=== PATIENT | female | born 1965 | race African-American/Black ===

== ENCOUNTER → 2017-01-11 | Outpatient (CLI) | payer OTHER, MEDICARE ==
[2016-10-10 11:00] VITALS: BP 111/37
[~2017-01-11] MED LIST: AMOX1TAB58 PO; ATEN50TA PO; CYCL10TA2 PO; DOXY100T PO; FLUC100T7 PO; FLUT1DIS3 IH; HYDR-971 PO; HYDR200T5 PO; MELO15TA6 PO; NAPR500T3 PO; OMEP40CA5 PO; OXYC-250 PO; OXYC-323 PO; OXYC10TA32 PO; PHEN100C PO; PHEN300C4 PO; PROAIR HFA8.5 GM INH; TOPI100T39 PO; WARF5TAB PO
== END | disposition home or self-care (01) ==
LOC: LAB 15:15
PROVIDERS: ATTEND Orthopaedic Surgery Sports Medicine
DX: Z96.651 Presence of right artificial knee joint (principal)
CPT/HCPCS: 36415; 85651; 86141

== ENCOUNTER 2017-01-22 19:31 | Emergency (ER) | payer OTHER, MEDICARE ==
[~2017-01-22] VITALS: Ht 167.6 cm; Wt 106.6 kg
[2017-01-22] MEDS ORDERED: IPRATRPIUM/ALBUTEROL 0.5/2.5MG 3 ML NEBU. NEB ONE ×2 (19:45)
[2017-01-22 20:01] LABS: BASO % 0 % (0-3); EOS % 1 % (0-3); HEMATOCRIT 38.6 % (36.0-47.0); HEMOGLOBIN 13.2 g/dL (12.0-15.5); LYMPH # 3.1 x10^3/uL (1.0-4.8); LYMPH % 40 % (24-48); MEAN CORPUSCULAR HEMOGLOBIN 31 pg (25-35); MEAN CORPUSCULAR HGB CONC 34 g/dL (31-37); MEAN CORPUSCULAR VOLUME 90 fL (79-100); MONO % 6 % (0-9); NEUT % 53 % (31-73); PLATELET COUNT 210 x10^3/uL (140-400); RED BLOOD COUNT 4.28 x10^6/uL (3.50-5.40); RED CELL DISTRIBUTION WIDTH 13.3 % (11.5-14.5); WHITE BLOOD COUNT 7.9 x10^3/uL (4.0-11.0)
[2017-01-22 20:10] LABS: GFR 70.5; POTASSIUM 3.8 mmol/L (3.5-5.1)
[2017-01-22 20:15] LABS: ALBUMIN 3.6 g/dL (3.4-5.0); C-REACTIVE PROTEIN 13.9 mg/L (0-3.3); TOTAL BILIRUBIN 0.2 mg/dL (0.2-1.0); TOTAL PROTEIN 7.2 g/dL (6.4-8.2)
[2017-01-22] MEDS ORDERED: ONDANSETRON PF 4 MG/2 ML VIAL. IV ONE (20:15)
[2017-01-22] MEDS ORDERED: HYDROMORPHONE 2 MG/ML VIAL. IV ONE (20:15)
[2017-01-22 21:37] VITALS: BP 126/60
[2017-01-22] MEDS ORDERED: NAPR500T PO (21:59)
[2017-01-22] MEDS ORDERED: TRAM-29 PO (21:59)
--- NOTE | 2017-01-22 21:59 | RAD ---
PROCEDURE Left lower extremity deep venous Doppler ultrasound HISTORY Left leg pain and swelling. Edema. COMPARISON None FINDINGS Grayscale, color Doppler and duplex analysis issues. The left common femoral vein, greater saphenous vein, superficial femoral vein, deep femoral vein, popliteal vein and visualized calf veins appear patent. Normal response to augmentation and normal compressibility were applied. IMPRESSION Negative for left lower extremity deep venous thrombosis. Electronically signed by: Harrison Mar MD (Jan 22, 2017 21:58:00)
--- NOTE | 2017-01-22 22:00 | PHYS DOC ---
Past Medical History Past Medical History: DVT, Hypertension, Seizure Past Surgical History: Cholecystectomy, Hysterectomy, Knee Replacement, Tubal ligation Alcohol Use: Rarely Drug Use: None Adult General Chief Complaint Chief Complaint: LOWER EXTREMITY SWELLING HPI HPI Patient is a 51 year old female who presents here today secondary to pain and swelling in her left knee all the way down her foot. Patient's past medical history significant for hypertension. Patient reports that she had a left total knee replacement done in July [address] Balderas early and is been having pain to that area since. Patient reports that recently her orthopedic surgeon to get an x-ray of her knee which revealed a metallic foreign body in the knee area. She reports that Dr. Tobar has not made a recommendation for removal of that metallic object. Patient reports that she does have a history significant for a DVT in the past. She reports that after her first total knee replacement back in 2011 she developed a clot was on anticoagulant therapy but is currently not on any. Patient is not allergic to any medications. Patient has a history of hypertension. No history of diabetes CHF COPD or asthma. Patient does have a history of seizures. Patient has no other surgeries. Patient denies any fevers shakes chills nausea vomiting diarrhea cough chest pain shortness of breath dysuria frequency or urgency. Patient denies any recent trauma. 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 Patient's physical exam is significant for tenderness to palpation to her left knee. I do not appreciate an effusion. There is no erythema or warmth that I can appreciate. Patient does have swelling to her left lower starry in comparison to her right lower extremities. Patient pulses are intact. Her DP and PT pulses bilaterally are equal. Patient has good capillary refill distally. Patient's capillary refill to her left and right lower surveys are both equal bilaterally. Patient's ER course was significant for an ultrasound which revealed no DVT. The limitations of ultrasonography were discussed with the patient and she was advised to follow-up with her doctor within 1 week for repeat ultrasound if she has any further concerns to assist with ruling out a DVT. Patient also had an x- ray of her left knee which didn't show any acute pathology. The foreign body opacification that she had described to me is visible on the x-ray. A/P #1 left knee pain with lower extremity edema. Etiology unclear. There is no evidence of DVT. Patient will be discharged home with Naprosyn to assist her with her pain. Patient was instructed to follow-up with her orthopedic or surgeon for further evaluation and management of the foreign body that was noted on her x-ray. Patient will be discharged home with Naprosyn and Ultram to assist her with her pain. Review of Systems Review of Systems Constitutional: Denies fever or chills [] Eyes: Denies change in visual acuity, redness, or eye pain [] HENT: Denies nasal congestion or sore throat [] All other review systems are negative except as documented in the history of present illness. Current Medications Current Medications Current Medications Medications (Trade) Dose Ordered Sig/Penny Start Time Stop Time Status Last Admin Dose Admin Albuterol/ Ipratropium (Duoneb) 3 ml 1X ONCE 01/22/17 19:45 01/22/17 19:45 DC Hydromorphone HCl (Dilaudid) 0.5 mg 1X ONCE 01/22/17 20:15 01/22/17 20:16 DC 01/22/17 20:02 0.5 MG Ondansetron HCl (Zofran) 4 mg 1X ONCE 01/22/17 20:15 01/22/17 20:16 DC 01/22/17 20:01 4 MG Allergies Allergies Allergies Coded Allergies Type Severity Reaction Last Updated Verified No Known Medication Allergies Allergy Unknown 10/13/16 Yes vancomycin Adverse Reaction Intermediate rash, Doxycycline OK 10/13/16 Yes Physical Exam Physical Exam Constitutional: Well developed, well nourished, no acute distress, non-toxic appearance. [] HENT: Normocephalic Eyes: PERRLA, conjunctiva normal, Neck: Normal range of motion, no tenderness, Cardiovascular:Heart rate regular rhythm, Lungs & Thorax: Bilateral breath sounds clear to auscultation [] Abdomen: Bowel sounds normal, soft, no tenderness, no masses, Skin: Warm, dry, no erythema Back: No tenderness, no CVA tenderness. [] Extremities: see above Neurologic: Alert and oriented X 3, normal motor function, normal sensory function, no focal deficits noted. [] Psychologic: Affect normal, judgement normal, mood normal. [] Current Patient Data Vital Signs Vital Signs Date Time Temp Pulse Resp B/P Pulse Ox O2 Delivery O2 Flow Rate FiO2 01/22/17 21:37 74 16 126/60 95 Room Air 01/22/17 19:36 99 99.0 Lab Values Laboratory Tests Test 01/22/17 19:47 White Blood Count 7.9x10^3/uL (4.0-11.0) Red Blood Count 4.28x10^6/uL (3.50-5.40) Hemoglobin 13.2g/dL (12.0-15.5) Hematocrit 38.6% (36.0-47.0) Mean Corpuscular Volume 90fL (79-100) Mean Corpuscular Hemoglobin 31pg (25-35) Mean Corpuscular Hemoglobin Concent 34g/dL (31-37) Red Cell Distribution Width 13.3% (11.5-14.5) Platelet Count 210x10^3/uL (140-400) Neutrophils (%) (Auto) 53% (31-73) Lymphocytes (%) (Auto) 40% (24-48) Monocytes (%) (Auto) 6% (0-9) Eosinophils (%) (Auto) 1% (0-3) Basophils (%) (Auto) 0% (0-3) Neutrophils # (Auto) 4.2x10^3uL (1.8-7.7) Lymphocytes # (Auto) 3.1x10^3/uL (1.0-4.8) Monocytes # (Auto) 0.5x10^3/uL (0.0-1.1) Eosinophils # (Auto) 0.1x10^3/uL (0.0-0.7) Basophils # (Auto) 0.0x10^3/uL (0.0-0.2) Erythrocyte Sedimentation Rate 2 (0-25) Sodium Level 141mmol/L (136-145) Potassium Level 3.8mmol/L (3.5-5.1) Chloride Level 105mmol/L (98-107) Carbon Dioxide Level 25mmol/L (21-32) Anion Gap 11 (6-14) Blood Urea Nitrogen 16mg/dL (7-20) Creatinine 1.0mg/dL (0.6-1.0) Estimated GFR (Cockcroft-Gault) 70.5 BUN/Creatinine Ratio 16 (6-20) Glucose Level 181mg/dL (70-99) H Calcium Level 9.0mg/dL (8.5-10.1) Total Bilirubin 0.2mg/dL (0.2-1.0) Aspartate Amino Transferase (AST) 15U/L (15-37) Alanine Aminotransferase (ALT) 20U/L (14-59) Alkaline Phosphatase 187U/L (46-116) H C-Reactive Protein, Quantitative 13.9mg/L (0-3.3) H Total Protein 7.2g/dL (6.4-8.2) Albumin 3.6g/dL (3.4-5.0) Albumin/Globulin Ratio 1.0 (1.0-1.7) Laboratory Tests 01/22/17 19:47 Laboratory Tests 01/22/17 19:47 EKG EKG [] Radiology/Procedures Radiology/Procedures [] Course & Med Decision Making Course & Med Decision Making Pertinent Labs and Imaging studies reviewed. (See chart for details) [] Dragon Disclaimer Dragon Disclaimer This electronic medical record was generated, in whole or in part, using a voice recognition dictation system. Departure Departure Impression: Primary Impression: Painful total knee replacement Additional Impression: Left leg pain Disposition: 01 HOME, SELF-CARE Condition: IMPROVED Referrals: KEMI MARIANO MD (PCP) Patient Instructions: Knee Pain, Peripheral Edema Scripts Tramadol Hcl (Ultram)50 Mg Tablet1 Tab PO Q6HRS #14 TAB Prov:CASSIE JOHNSON MD 01/22/17 Naproxen (Naprosyn)500 Mg Tablet1 Tab PO BID #60 TAB Ref 1 Prov:CASSIE JOHNSON MD 01/22/17 Problem Qualifiers CASSIE JOHNSON MD Jan 22, 2017 22:00
--- NOTE | 2017-01-23 08:19 | RAD ---
KNEE LEFT 3V Clinical Indication: Left knee pain and swelling, total knee arthroplasty 6 months. Comparison: August 02, 2016. Technique: Frontal, oblique and lateral views of the left knee are obtained. Findings: Postsurgical changes of total knee arthroplasty are redemonstrated. No displaced fracture is seen. A somewhat linear type lucency is seen in an oblique fashion within the lateral proximal tibia, of undetermined significance, not appearing to represent a definite fracture. Follow-up exam could be obtained if pain persists. Radiopaque foreign body redemonstrated in the anterior soft tissues over the distal femur, stable in position. No significant joint effusion is present. Overlying soft tissues demonstrate no acute process. IMPRESSION: Postsurgical changes of total knee arthroplasty without a definite fracture seen. See discussion above.
== END 2017-01-22 22:08 | disposition home or self-care (01) ==
LOC: ER 19:31
DX: T84.84XA Pain due to internal orthopedic prosthetic devices, implants and grafts, initial encounter (principal); I10 Essential (primary) hypertension; Z86.718 Personal history of other venous thrombosis and embolism; Z96.652 Presence of left artificial knee joint; Z88.1 Allergy status to other antibiotic agents; Y79.2 Prosthetic and other implants, materials and accessory orthopedic devices associated with adverse incidents; Y92.89 Other specified places as the place of occurrence of the external cause
CPT/HCPCS: 36415; 73562; 80053; 85027; 85651; 86140; 86141; 93971; 96374; 96375; 99285; J1170; J2405

== ENCOUNTER → 2017-02-23 | Outpatient (CLI) | payer OTHER, MEDICARE ==
[~2017-02-23] MED LIST changes: +NAPR500T PO; +TRAM-29 PO; +WARF-78 PO; -WARF5TAB PO
== END | disposition home or self-care (01) ==
LOC: SPEC 12:11
PROVIDERS: ATTEND Internal Medicine
DX: R56.9 Unspecified convulsions (principal)
CPT/HCPCS: 36415; 80185

== ENCOUNTER → 2017-02-23 | Outpatient (CLI) | payer OTHER, MEDICARE | END | disposition home or self-care (01) | LOC: LAB 11:32 | PROVIDERS: ATTEND Orthopaedic Surgery Sports Medicine | DX: M25.561 Pain in right knee (principal) | CPT/HCPCS: 36415; 85651; 86141 ==

== ENCOUNTER → 2017-02-25 | Outpatient (CLI) | payer OTHER, MEDICARE | END | disposition home or self-care (01) | LOC: LAB 12:02 | PROVIDERS: ATTEND Orthopaedic Surgery Sports Medicine | DX: M25.562 Pain in left knee (principal) | CPT/HCPCS: 36415; 86140 ==

== ENCOUNTER → 2017-03-02 | Outpatient (CLI) | payer OTHER, MEDICARE ==
[2017-03-02 17:44] LABS: BF CLARITY TURBID; BF COLOR RED
== END | disposition home or self-care (01) ==
LOC: SPEC 16:20
PROVIDERS: ATTEND Orthopaedic Surgery Sports Medicine
DX: Z96.652 Presence of left artificial knee joint (principal)
CPT/HCPCS: 87205; 89050

== ENCOUNTER 2017-03-21 06:55 | Day surgery (SDC) | payer OTHER, MEDICARE ==
[~2017-03-21] VITALS: Ht 170.2 cm; Wt 107.5 kg
[~2017-03-21 06:55] MED LIST changes: +HYDR-2758 PO; -OXYC-250 PO; +OXYC-328 PO; -OXYC10TA32 PO; +OXYC10TA45 PO; -TOPI100T39 PO; +TOPI100T42 PO; -TRAM-29 PO; +TRAM-48 PO
[2017-03-21] MEDS ORDERED: PROCHLORPERAZINE 10 MG/2 ML VIAL. IV PRN (07:00)
[2017-03-21] MEDS ORDERED: HYDROmorphone 2 MG/ML VIAL IV PRN (07:00)
[2017-03-21] MEDS ORDERED: fentaNYL PF VIAL 100 MCG/2 ML VIAL IV PRN (07:00)
[2017-03-21] MEDS ORDERED: IV RINGERS,LACTATED 1000ML 1,000 ML IV SCH (07:00)
[2017-03-21] MEDS ORDERED: ONDANSETRON PF 4 MG/2 ML VIAL. IV PRN (07:00)
[2017-03-21] MEDS ORDERED: LIDOCAINE 1% 1 ML SYRINGE. ID PRN (07:00)
[2017-03-21] MEDS ORDERED: LIDOCAINE 1% PF 30 ML VIAL. ONE (07:19)
[2017-03-21] MEDS ORDERED: BUPIVACAINE MPF 0.5% 30 ML VIAL. ONE (07:20)
[2017-03-21] MEDS ORDERED: MORPHINE SULFATE 5 MG, KETOROLAC TROMETHAMINE 30 MG, ROPIVacaine 0.5% PF 60 ML, EPINEPH... INT ART ONE ×5 (07:22)
[2017-03-21] MEDS ORDERED: GABA-586 PO (07:29)
[2017-03-21] MEDS ORDERED: PROPOFOL 20 ML IV ONE (07:42)
[2017-03-21] MEDS ORDERED: LIDOCAINE 2% PF Vial for OR 5 ML VIAL. ONE (07:42)
[2017-03-21] MEDS ORDERED: fentaNYL PF VIAL 100 MCG/2 ML VIAL ONE (07:44)
[2017-03-21] MEDS ORDERED: MIDAZOLAM HCL/PF 2 MG/2 ML VIAL. ONE (07:44)
[2017-03-21] MEDS ORDERED: DEXAMETHASONE SOD PHOS 20 MG/5 ML VIAL. ONE (07:44)
[2017-03-21] MEDS ORDERED: ONDANSETRON PF 4 MG/2 ML VIAL. ONE (07:44)
--- NOTE | 2017-03-21 07:49 | DISCH ---
DISCHARGE INSTRUCTIONS Condition on Discharge Condition on Discharge: Stable Activity After Discharge Activity Instructions for Disc: Other, see below Bathing Instructions: Shower-keep dressing dry Weight Bearing Status after Di: As tolerated Diet after Discharge Diet after Discharge: Regular Wound Incision Care Wound/Incision Care: Ice to area for comfort, Keep wound/cast CDI, Keep wound elevated, Change dressing Contacting the DRRajni after DC Call your doctor for: Concerns you may have Follow-Up Follow up with: Bubba in 2wks MK COOLEY II, MD Mar 21, 2017 07:48
--- NOTE | 2017-03-21 07:50 | PDOC ---
BRIEF OPERATIVE NOTE Date: Mar 21, 2017 Pre-Op Diagnosis FB L knee Post-Op Diagnosis same Procedure Performed FB removal L knee Surgeon Bubba Armas Anesthesia Type: General, Local Blood Loss 25mL Complications none MK COOLEY II, MD Mar 21, 2017 07:50
[2017-03-21] MEDS ORDERED: DEXAMETHASONE SOD PHOS 4 MG/ML VIAL IV ONE (08:00)
[2017-03-21] MEDS ORDERED: SCOPOLAMINE 1.5MG PATCH. TD ONE (08:00)
[2017-03-21] MEDS ORDERED: FAMOTIDINE 20 MG/2 ML VIAL ONE (08:22)
[2017-03-21] MEDS ORDERED: METOCLOPRAMIDE HCL 10 MG/2 ML VIAL. ONE (08:36)
[2017-03-21] MEDS ORDERED: SEVOFLURANE 61 TO 120 MINUTES. IH ONE (08:42)
[2017-03-21] MEDS: fentaNYL PF VIAL 100 MCG/2 ML VIAL IV PRN ×3 (10:04→10:21)
[2017-03-21] MEDS: MORPHINE SULFATE 2 MG/ML DISP.SYRIN. IV PRN ×2 (10:07→10:17)
--- NOTE | 2017-03-21 10:29 | OP ---
DATE OF SURGERY: 03/21/2017 SURGEON: Ricky Cooley MD HEAD MVA REACTOR OPERATOR: Meghna Armas. ANESTHESIA: General. PREOPERATIVE DIAGNOSIS: Retained foreign body, left knee. POSTOPERATIVE DIAGNOSIS: Retained foreign body, left knee. PROCEDURE PERFORMED: Removal of foreign body from deep subcutaneous tissue, left knee. FINDINGS: A metallic piece measured approximately 6 mm x 2 mm x 1 mm thick, was found deep and subcutaneous tissue. ESTIMATED BLOOD LOSS: 25 mL. TOURNIQUET TIME: None used. REASON FOR PROCEDURE: The patient is a very pleasant 51-year-old female, who underwent a left knee revision surgery with myself, when likely part of an osteotome chipped off that was unrecognized until the postoperative x-ray. I discussed options with her and she elected for a wait and see approach; however, she had been having some pain that was likely over the area and I discussed the risks, benefits, alternatives to remove this foreign body, after she had recovered well from her knee replacement. DESCRIPTION OF PROCEDURE: The patient was greeted in the preoperative area by myself. Correct extremity was marked and verified. She was taken to the operative suite and her antibiotics were started en route. Once in the OR, she was transferred gently supine to the OR table and had successful induction of general anesthesia. She was secured to the bed. All pressure points were padded. We placed a nonsterile tourniquet and taped in place to her left thigh, but did not use it for this case. We placed a padded bolster at her hip as well in case we needed to maintain her knee into flexion. We then conducted or then proceeded to prep and drape left lower extremity in usual sterile fashion and conducted a standard preoperative timeout. Prior to this, an examination under anesthesia was performed by myself and revealed range of motion from 0 to approximately 95 degrees and the knee that was stable to varus and valgus in extension and mid flexion. After prepping and draping, which included an Ioban sandwich, I then brought in C-arm to help localize this area and then made an incision that included the proximal portion of her total knee arthroplasty incision and dissected subcutaneous tissue with an electrocautery down to the extensor mechanism. I used C-arm to help localize it further in place a spinal needle and used a combination of a tenotomy and small mosquito clamp to dissect to the region around the tip of the spinal needle and was able to identify the metallic object, which I then removed with the clamp. After this, we irrigated out the operative field with approximately 1500 mL of sterile normal saline. I then closed the deep layers with inverted interrupted #1 Vicryl in a multilayer fashion followed by inverted interrupted 2-0 for subcutaneous tissue and running 4-0 Monocryl for the skin in a subcuticular fashion. We then injected periarticular mixture liberally around the operative field, then incision. I then cleansed and dried the leg and placed Steri-Strips, Xeroform gauze, ABD, sterile cast padding and an Kj wrap to the patient's knee. She tolerated surgery well. Prior to completion of wound closure, all counts were reported correct x 2. No complications. Postop plan is to hopefully discharge her home, pending her postop nausea and vomiting that she has had some problems with in the past. She can weightbear as tolerated. Wound care was discussed with her and her family. We will see her back in my clinic in 2 weeks, sooner should problems arise. RICKY COOLEY MD DR: LUCHO/risa JOB#: [id number] / [id number] DANIEL
[2017-03-21] MEDS ORDERED: oxyCODONE/APAP 7.5/325 1 TAB TABLET PO PRN (10:30)
[2017-03-21 11:20] VITALS: BP 134/60
== END 2017-03-21 11:25 | disposition home or self-care (01) ==
LOC: SURG 06:55
PROVIDERS: ATTEND Orthopaedic Surgery Sports Medicine
DX: M79.5 Residual foreign body in soft tissue (principal); I10 Essential (primary) hypertension; J45.909 Unspecified asthma, uncomplicated; K21.9 Gastro-esophageal reflux disease without esophagitis; M19.90 Unspecified osteoarthritis, unspecified site; Z86.69 Personal history of other diseases of the nervous system and sense organs; Z90.710 Acquired absence of both cervix and uterus; Z98.51 Tubal ligation status; Z87.440 Personal history of urinary (tract) infections; Z96.653 Presence of artificial knee joint, bilateral; Z72.89 Other problems related to lifestyle; Z90.49 Acquired absence of other specified parts of digestive tract; Z87.01 Personal history of pneumonia (recurrent); Z88.3 Allergy status to other anti-infective agents
CPT/HCPCS: 10120; 12031; 76000; J0171; J0690; J0780; J1100; J1885; J2250; J2270; J2405; J2704; J2765; J2795; J3010; S0028; J3490

== ENCOUNTER 2017-03-23 13:49 | Emergency (ER) | payer OTHER, MEDICARE ==
[~2017-03-23] VITALS: Ht 167.6 cm; Wt 107.5 kg
[~2017-03-23 13:49] MED LIST changes: +GABA-586 PO
[2017-03-23 13:55] VITALS: BP 182/81
--- NOTE | 2017-03-23 14:29 | PHYS DOC ---
Past Medical History Past Medical History: DVT, Hypertension, Seizure Past Surgical History: Cholecystectomy, Hysterectomy, Knee Replacement, Tubal ligation Alcohol Use: Rarely Drug Use: None Adult General Chief Complaint Chief Complaint: OTHER COMPLAINTS [facility] HPI Patient is a 51 year old female presents to the emergency department with a history of left knee surgery on Tuesday. Patient states her dressing was saturated from secretions from the wound. Patient states that she originally came in to help the dressing removed. Patient states that she has been having increased pain and discomfort. She states that the secretions and drainage on the dressing which has a foul odor. Patient denies fever, chills, nausea or vomiting. Denies numbness or tingling in the foot. She states she last took a percocet 77.5 at 1130 today. Review of Systems Review of Systems Constitutional: Denies fever or chills [] Eyes: Denies change in visual acuity, redness, or eye pain [] HENT: Denies nasal congestion or sore throat [] Respiratory: Denies cough or shortness of breath [] Cardiovascular: No additional information not addressed in HPI [] GI: Denies abdominal pain, nausea, vomiting, bloody stools or diarrhea [] : Denies dysuria or hematuria [] Musculoskeletal: Denies back pain. C/o left knee pain and discomfort with odor coming from surgical dressing Integument: Denies rash or skin lesions [] Neurologic: Denies headache, focal weakness or sensory changes [] Endocrine: Denies polyuria or polydipsia [] Current Medications Current Medications Current Medications Medications (Trade) Dose Ordered Sig/Penny Start Time Stop Time Status Last Admin Dose Admin Ibuprofen (Motrin) 800 mg 1X ONCE 03/23/17 14:30 03/23/17 14:31 DC 03/23/17 14:51 800 MG Allergies Allergies Allergies Coded Allergies Type Severity Reaction Last Updated Verified vancomycin Adverse Reaction Intermediate rash, Doxycycline OK 03/21/17 Yes Physical Exam Physical Exam Constitutional: Well developed, well nourished, no acute distress, non-toxic appearance. [] HENT: Normocephalic, atraumatic, bilateral external ears normal, oropharynx moist, no oral exudates, nose normal. [] Eyes: PERRLA, EOMI, conjunctiva normal, no discharge. [] Neck: Normal range of motion, no tenderness, supple, no stridor. [] Cardiovascular:Heart rate regular rhythm Lungs & Thorax: no respiratory distress noted. Skin: Warm, dry, no erythema, no rash. Redness with foul odor drainage noted from the incision site. Back: No tenderness Extremities: Left knee tenderness noted at the incision site, no cyanosis, no clubbing, ROM intact, no edema. [] Neurologic: Alert and oriented X 3, normal motor function, normal sensory function, no focal deficits noted. [] Psychologic: Affect normal, judgement normal, mood normal. [] Current Patient Data Vital Signs Vital Signs Date Time Temp Pulse Resp B/P (MAP) Pulse Ox O2 Delivery O2 Flow Rate FiO2 03/23/17 13:55 98.2 66 16 96 Room Air 98.2 Lab Values Laboratory Tests Test 03/23/17 14:40 White Blood Count 8.0 x10^3/uL (4.0-11.0) Red Blood Count 4.29 x10^6/uL (3.50-5.40) Hemoglobin 13.4 g/dL (12.0-15.5) Hematocrit 38.8 % (36.0-47.0) Mean Corpuscular Volume 91 fL (79-100) Mean Corpuscular Hemoglobin 31 pg (25-35) Mean Corpuscular Hemoglobin Concent 35 g/dL (31-37) Red Cell Distribution Width 12.5 % (11.5-14.5) Platelet Count 164 x10^3/uL (140-400) Neutrophils (%) (Auto) 53 % (31-73) Lymphocytes (%) (Auto) 37 % (24-48) Monocytes (%) (Auto) 8 % (0-9) Eosinophils (%) (Auto) 1 % (0-3) Basophils (%) (Auto) 1 % (0-3) Neutrophils # (Auto) 4.3 x10^3uL (1.8-7.7) Lymphocytes # (Auto) 3.0 x10^3/uL (1.0-4.8) Monocytes # (Auto) 0.6 x10^3/uL (0.0-1.1) Eosinophils # (Auto) 0.1 x10^3/uL (0.0-0.7) Basophils # (Auto) 0.1 x10^3/uL (0.0-0.2) Laboratory Tests 03/23/17 14:40 EKG EKG [] Radiology/Procedures Radiology/Procedures [] Course & Med Decision Making Course & Med Decision Making Pertinent Labs and Imaging studies reviewed. (See chart for details) Spoke with Dr. Mac in regards to the patient in the emergency department with a dressing that was foul odor. White count is within normal limits. He recommends Bactrim and have the patient follow up with him in his doctor's office tomorrow at 9 AM. Patient will be discharged home with recommendations to use the ibuprofen 800 mg every 8 hours and continue to use the Percocet which she has prescription for. He recommended a clean dry dressing to the area. Patient will be discharged home in stable condition signs and symptoms to return back to emergency department as been provided. Patient agrees with discharge instructions treatment regimens and follow-up recommendations. [] Dragon Disclaimer Dragon Disclaimer This electronic medical record was generated, in whole or in part, using a voice recognition dictation system. Departure Departure Impression: Primary Impression: Wound, surgical, infected Disposition: HOME, SELF-CARE Condition: STABLE Referrals: KEMI MARIANO MD (PCP) Patient Instructions: Wound Infection, [id number] Additional Instructions: Keep the area clean and dry. Ibuprofen 800 mg every 8 hours with food stop taking few develop an upset stomach. Continue with your Percocet in which you have a prescription for home. Follow-up with Dr. Mac in his office tomorrow at 9 AM. Return back to emergency prior signs symptoms of become worse. Scripts Sulfamethoxazole/Trimethoprim (BACTRIM DS TABLET) 1 Each Tablet 1 TAB PO BID, #20 TAB Prov: ASHLEY MULLEN APRN 03/23/17 ASHLEY MULLEN APRN Mar 23, 2017 14:29
[2017-03-23] MEDS ORDERED: IBUPROFEN 800 MG TABLET. PO ONE (14:30)
[2017-03-23 14:54] LABS: BASO # 0.1 x10^3/uL (0.0-0.2); BASO % 1 % (0-3); EOS % 1 % (0-3); HEMATOCRIT 38.8 % (36.0-47.0); HEMOGLOBIN 13.4 g/dL (12.0-15.5); LYMPH % 37 % (24-48); MEAN CORPUSCULAR HEMOGLOBIN 31 pg (25-35); MEAN CORPUSCULAR HGB CONC 35 g/dL (31-37); MEAN CORPUSCULAR VOLUME 91 fL (79-100); MONO % 8 % (0-9); NEUT % 53 % (31-73); PLATELET COUNT 164 x10^3/uL (140-400); RED BLOOD COUNT 4.29 x10^6/uL (3.50-5.40); RED CELL DISTRIBUTION WIDTH 12.5 % (11.5-14.5)
[2017-03-23] MEDS ORDERED: SULF1TAB24 PO (15:13)
[2017-03-23 15:23] LABS: CALCIUM 8.9 mg/dL (8.5-10.1); CREATININE 0.8 mg/dL (0.6-1.0); GFR 91.1; POTASSIUM 3.7 mmol/L (3.5-5.1)
[2017-03-23 15:28] LABS: ALBUMIN 3.7 g/dL (3.4-5.0); TOTAL BILIRUBIN 0.4 mg/dL (0.2-1.0); TOTAL PROTEIN 7.4 g/dL (6.4-8.2)
== END 2017-03-23 15:33 | disposition home or self-care (01) ==
LOC: ER 13:49
DX: T81.4XXA Infection following a procedure, initial encounter (principal); I10 Essential (primary) hypertension; Z86.718 Personal history of other venous thrombosis and embolism; Z90.49 Acquired absence of other specified parts of digestive tract; Z90.710 Acquired absence of both cervix and uterus; Z96.652 Presence of left artificial knee joint; Z98.51 Tubal ligation status; Z88.1 Allergy status to other antibiotic agents; Y92.89 Other specified places as the place of occurrence of the external cause; Y83.8 Other surgical procedures as the cause of abnormal reaction of the patient, or of later complication, without mention of misadventure at the time of the procedure
CPT/HCPCS: 36415; 80053; 85027; 87040; 99284; 99285-25

== ENCOUNTER 2017-03-26 22:07 | Observation (INO) | payer OTHER, MEDICARE ==
[~2017-03-26] VITALS: Ht 167.6 cm; Wt 108.7 kg
[~2017-03-26 22:07] MED LIST changes: +SULF1TAB24 PO
[2017-03-26 22:49] LABS: BILIRUBIN,URINE NEGATIVE (NEG); GLUCOSE,URINE NEGATIVE (NEG); NITRITE,URINE NEGATIVE (NEG); PH,URINE 5.5; PROTEIN,URINE NEGATIVE (NEG-TRACE); UROBILINOGEN,URINE 0.2 mg/dL (0.2 mg/dL)
[2017-03-26 22:54] LABS: BACTERIA,URINE FEW /HPF (0-FEW); RBC,URINE 0 /HPF (0-2); SQUAMOUS EPITHELIAL CELL,UR MANY /LPF; WBC,URINE RARE /HPF (0-4)
[2017-03-26 23:29] LABS: BASO # 0.1 x10^3/uL (0.0-0.2); BASO % 1 % (0-3); EOS % 0 % (0-3); HEMATOCRIT 42.5 % (36.0-47.0); HEMOGLOBIN 14.5 g/dL (12.0-15.5); LYMPH # 1.5 x10^3/uL (1.0-4.8); LYMPH % 18 % (24-48); MEAN CORPUSCULAR HEMOGLOBIN 31 pg (25-35); MEAN CORPUSCULAR HGB CONC 34 g/dL (31-37); MEAN CORPUSCULAR VOLUME 90 fL (79-100); MONO % 5 % (0-9); NEUT % 77 % (31-73); PLATELET COUNT 241 x10^3/uL (140-400); RED BLOOD COUNT 4.71 x10^6/uL (3.50-5.40); RED CELL DISTRIBUTION WIDTH 12.7 % (11.5-14.5); WHITE BLOOD COUNT 8.7 x10^3/uL (4.0-11.0)
[2017-03-26] MEDS ORDERED: ONDANSETRON PF 4 MG/2 ML VIAL. IV ONE (23:30)
[2017-03-26] MEDS ORDERED: HYDROmorphone 2 MG/ML VIAL IV ONE (23:30)
[2017-03-26 23:39] LABS: CALCIUM 9.5 mg/dL (8.5-10.1); CREATININE 0.9 mg/dL (0.6-1.0); GFR 79.6; POTASSIUM 4.2 mmol/L (3.5-5.1)
[2017-03-26 23:44] LABS: ALBUMIN 3.7 g/dL (3.4-5.0); ALBUMIN/GLOBULIN RATIO 0.9 (1.0-1.7); TOTAL BILIRUBIN 0.2 mg/dL (0.2-1.0)
[2017-03-27] MEDS ORDERED: ACETAMINOPHEN 325 MG TABLET. PO PRN (00:30)
[2017-03-27] MEDS ORDERED: ONDANSETRON PF 4 MG/2 ML VIAL. IV PRN ×2 (00:30→13:34)
[2017-03-27] MEDS ORDERED: OXYC-327 PO (01:27)
[2017-03-27 01:38] VITALS: BP 126/63
[2017-03-27] MEDS: MORPHINE SULFATE 4 MG/ML DISP.SYRIN. IV PRN ×2 (02:01→05:53)
--- NOTE | 2017-03-27 02:17 | PHYS DOC ---
Past Medical History Past Medical History: DVT, Hypertension, Seizure Past Surgical History: Cholecystectomy, Hysterectomy, Knee Replacement, Tubal ligation Additional Past Surgical Histo: MULTIPLE KNEE SX Alcohol Use: Rarely Drug Use: None Adult General Chief Complaint Chief Complaint: POST-OP PROBLEM HPI HPI Patient is a 51 year old female who presents here today secondary to pain and swelling to her left knee. Patient recently had surgery for a retained foreign body in her knee. She reports that she had a surgery to remove some metallic object that was left inside there. Patient reports that she went to her PCP on Tuesday secondary to pain and swelling in drainage. Patient reports that she was discharged home after an evaluation the ER and discussion with Dr. Balderas early on Tuesday on Bactrim. Today she had a fever 101.3 at home so she came in to the ER for further evaluation. Patient reports she's had vomiting 2. No diarrhea. No dysuria frequency or urgency. No sore throat or ear pain. No rash. Patient's physical exam was significant for tenderness to palpation and erythema around the incision site of her left knee. The remainder the patient's exams been normal. Patient's TMs are clear. Oropharynx was normal. Her abdomen was soft nontender no rebound or guarding. Patient has no other rash or joint tenderness. Patient has no nuchal rigidity Patient's ER workup was significant for an elevated CRP. Patient's CBC count was normal. Patient did have a low-grade fever here in the ED. Assessment and plan 51-year-old female with recent surgery to her left knee. Patient is concerned that she might have a postop wound infection. Patient does have a temperature 101 at home despite being on Bactrim now. I discussed the case with Dr. quintana and he is her best that we admit her to the hospital in the hospital service for further evaluation. Blood cultures have been sent. And are pending. Review of Systems Review of Systems Please Eyes: Denies change in visual acuity, redness, or eye pain [] All other review systems are negative except as documented in the history of present illness portion. Current Medications Current Medications Current Medications Medications (Trade) Dose Ordered Sig/Penny Start Time Stop Time Status Last Admin Dose Admin Acetaminophen (Tylenol) 650 mg PRN Q4HRS PRN 03/27/17 00:30 03/28/17 00:29 03/27/17 02:02 650 MG Hydromorphone HCl (Dilaudid) 1 mg 1X ONCE 03/26/17 23:30 03/26/17 23:31 DC 03/26/17 23:26 1 MG Morphine Sulfate 4 mg PRN Q2HR PRN 03/27/17 00:30 03/28/17 00:29 03/27/17 02:01 4 MG Ondansetron HCl (Zofran) 4 mg PRN Q8HRS PRN 03/27/17 00:30 03/28/17 00:29 Allergies Allergies Allergies Coded Allergies Type Severity Reaction Last Updated Verified vancomycin Adverse Reaction Intermediate rash, Doxycycline OK 03/21/17 Yes Physical Exam Physical Exam Please see above Constitutional: Well developed, well nourished, no acute distress, non-toxic appearance. [] HENT: Normocephalic, atraumatic, bilateral external ears normal, oropharynx moist, no oral exudates, nose normal. [] Eyes: PERRLA, EOMI, conjunctiva normal, no discharge. [] Neck: Normal range of motion, no tenderness, supple, no stridor. [] Cardiovascular:Heart rate regular rhythm, no murmur [] Lungs & Thorax: Bilateral breath sounds clear to auscultation [] Abdomen: Bowel sounds normal, soft, no tenderness, no masses, no pulsatile masses. [] Neurologic: Alert and oriented X 3, normal motor function, normal sensory function, no focal deficits noted. [] Psychologic: Affect normal, judgement normal, mood normal. [] Current Patient Data Vital Signs Vital Signs Date Time Temp Pulse Resp B/P (MAP) Pulse Ox O2 Delivery O2 Flow Rate FiO2 03/26/17 22:25 100.1 88 20 147/69 (95) 99 Room Air 100.1 Lab Values Laboratory Tests Test 03/26/17 22:30 03/26/17 23:20 03/26/17 23:30 Urine Collection Type Unknown Urine Color Yellow Urine Clarity Clear Urine pH 5.5 Urine Specific [place] 1.015 Urine Protein Negative mg/dL (NEG-TRACE) Urine Glucose (UA) Negative mg/dL (NEG) Urine Ketones (Stick) Negative mg/dL (NEG) Urine Blood Negative (NEG) Urine Nitrite Negative (NEG) Urine Bilirubin Negative (NEG) Urine Urobilinogen Dipstick 0.2 mg/dL (0.2 mg/dL) Urine Leukocyte Esterase Negative (NEG) Urine RBC 0 /HPF (0-2) Urine WBC Rare /HPF (0-4) Urine Squamous Epithelial Cells Many /LPF Urine Bacteria Few /HPF (0-FEW) Urine Mucus Marked /LPF White Blood Count 8.7 x10^3/uL (4.0-11.0) Red Blood Count 4.71 x10^6/uL (3.50-5.40) Hemoglobin 14.5 g/dL (12.0-15.5) Hematocrit 42.5 % (36.0-47.0) Mean Corpuscular Volume 90 fL (79-100) Mean Corpuscular Hemoglobin 31 pg (25-35) Mean Corpuscular Hemoglobin Concent 34 g/dL (31-37) Red Cell Distribution Width 12.7 % (11.5-14.5) Platelet Count 241 x10^3/uL (140-400) Neutrophils (%) (Auto) 77 % (31-73) H Lymphocytes (%) (Auto) 18 % (24-48) L Monocytes (%) (Auto) 5 % (0-9) Eosinophils (%) (Auto) 0 % (0-3) Basophils (%) (Auto) 1 % (0-3) Neutrophils # (Auto) 6.6 x10^3uL (1.8-7.7) Lymphocytes # (Auto) 1.5 x10^3/uL (1.0-4.8) Monocytes # (Auto) 0.4 x10^3/uL (0.0-1.1) Eosinophils # (Auto) 0.0 x10^3/uL (0.0-0.7) Basophils # (Auto) 0.1 x10^3/uL (0.0-0.2) Erythrocyte Sedimentation Rate 2 (0-25) Sodium Level 138 mmol/L (136-145) Potassium Level 4.2 mmol/L (3.5-5.1) Chloride Level 104 mmol/L (98-107) Carbon Dioxide Level 26 mmol/L (21-32) Anion Gap 8 (6-14) Blood Urea Nitrogen 9 mg/dL (7-20) Creatinine 0.9 mg/dL (0.6-1.0) Estimated GFR (Cockcroft-Gault) 79.6 BUN/Creatinine Ratio 10 (6-20) Glucose Level 163 mg/dL (70-99) H Calcium Level 9.5 mg/dL (8.5-10.1) Total Bilirubin 0.2 mg/dL (0.2-1.0) Aspartate Amino Transferase (AST) 19 U/L (15-37) Alanine Aminotransferase (ALT) 21 U/L (14-59) Alkaline Phosphatase 178 U/L (46-116) H Total Protein 8.0 g/dL (6.4-8.2) Albumin 3.7 g/dL (3.4-5.0) Albumin/Globulin Ratio 0.9 (1.0-1.7) L Lactic Acid Level 1.9 mmol/L (0.4-2.0) C-Reactive Protein, Quantitative 20.9 mg/L (0-3.3) H Laboratory Tests 03/26/17 23:20 Laboratory Tests 03/26/17 23:20 EKG EKG [] Radiology/Procedures Radiology/Procedures [] Course & Med Decision Making Course & Med Decision Making Pertinent Labs and Imaging studies reviewed. (See chart for details) [] Dragon Disclaimer Dragon Disclaimer This electronic medical record was generated, in whole or in part, using a voice recognition dictation system. Departure Departure Impression: Primary Impression: Postoperative fever Additional Impression: Wound, surgical, infected Disposition: ADMITTED INPATIENT Admitting Physician: Kemi Mariano Condition: IMPROVED Referrals: KEMI MARIANO MD (PCP) Problem Qualifiers CASSIE JOHNSON MD Mar 27, 2017 02:17
[2017-03-27] MEDS ORDERED: HYDROcodone/APAP 5/325MG 1 TAB TABLET PO PRN (02:45)
[2017-03-27] MEDS ORDERED: CYCLOBENZAPRINE 10 MG TABLET. PO PRN (02:45)
[2017-03-27] MEDS ORDERED: NON FORMULARY ITEM (Albuterol Sulfate (Proair Hfa Inhaler) 1 PUFF) INH PRN (02:45)
[2017-03-27] MEDS ORDERED: oxyCODONE/APAP 7.5/325 1 TAB TABLET PO PRN (03:00)
[2017-03-27] MEDS ORDERED: ALBUTEROL SULFATE 2.5 MG/3 ML NEBU. NEB PRN (03:00)
[2017-03-27] MEDS ORDERED: SUMAtriptan SUCCINATE 25 MG TABLET PO PRN ×2 (03:15→11:30)
[2017-03-27] MEDS: oxyCODONE/APAP 7.5/325 1 TAB TABLET PO PRN ×3 (03:15→20:36)
[2017-03-27 05:54] LABS: BASO # 0.1 x10^3/uL (0.0-0.2); BASO % 1 % (0-3); EOS % 0 % (0-3); HEMOGLOBIN 13.9 g/dL (12.0-15.5); LYMPH # 3.9 x10^3/uL (1.0-4.8); LYMPH % 35 % (24-48); MEAN CORPUSCULAR HEMOGLOBIN 31 pg (25-35); MEAN CORPUSCULAR HGB CONC 36 g/dL (31-37); MEAN CORPUSCULAR VOLUME 88 fL (79-100); MONO % 9 % (0-9); NEUT % 55 % (31-73); PLATELET COUNT 250 x10^3/uL (140-400); RED BLOOD COUNT 4.43 x10^6/uL (3.50-5.40); RED CELL DISTRIBUTION WIDTH 12.8 % (11.5-14.5); WHITE BLOOD COUNT 11.1 x10^3/uL (4.0-11.0)
[2017-03-27 06:12] LABS: ALBUMIN 3.5 g/dL (3.4-5.0); ALBUMIN/GLOBULIN RATIO 0.9 (1.0-1.7); CREATININE 0.8 mg/dL (0.6-1.0); GFR 91.1; POTASSIUM 3.7 mmol/L (3.5-5.1); TOTAL BILIRUBIN 0.3 mg/dL (0.2-1.0); TOTAL PROTEIN 7.4 g/dL (6.4-8.2)
--- NOTE | 2017-03-27 07:31 | PDOC ---
ORTHO PROGRESS NOTES Vitals Vital Signs Date Time Temp Pulse Resp B/P (MAP) Pulse Ox O2 Delivery O2 Flow Rate FiO2 03/27/17 06:24 17 Room Air 03/27/17 01:38 99.4 82 126/63 (84) 93 99.4 Labs Laboratory Tests Test 03/26/17 22:30 03/26/17 23:20 03/26/17 23:30 03/27/17 05:41 Urine Collection Type Unknown Urine Color Yellow Urine Clarity Clear Urine pH 5.5 Urine Specific [place] 1.015 Urine Protein Negative mg/dL (NEG-TRACE) Urine Glucose (UA) Negative mg/dL (NEG) Urine Ketones (Stick) Negative mg/dL (NEG) Urine Blood Negative (NEG) Urine Nitrite Negative (NEG) Urine Bilirubin Negative (NEG) Urine Urobilinogen Dipstick 0.2 mg/dL (0.2 mg/dL) Urine Leukocyte Esterase Negative (NEG) Urine RBC 0 /HPF (0-2) Urine WBC Rare /HPF (0-4) Urine Squamous Epithelial Cells Many /LPF Urine Bacteria Few /HPF (0-FEW) Urine Mucus Marked /LPF White Blood Count 8.7 x10^3/uL (4.0-11.0) 11.1 x10^3/uL (4.0-11.0) Red Blood Count 4.71 x10^6/uL (3.50-5.40) 4.43 x10^6/uL (3.50-5.40) Hemoglobin 14.5 g/dL (12.0-15.5) 13.9 g/dL (12.0-15.5) Hematocrit 42.5 % (36.0-47.0) 39.0 % (36.0-47.0) Mean Corpuscular Volume 90 fL (79-100) 88 fL (79-100) Mean Corpuscular Hemoglobin 31 pg (25-35) 31 pg (25-35) Mean Corpuscular Hemoglobin Concent 34 g/dL (31-37) 36 g/dL (31-37) Red Cell Distribution Width 12.7 % (11.5-14.5) 12.8 % (11.5-14.5) Platelet Count 241 x10^3/uL (140-400) 250 x10^3/uL (140-400) Neutrophils (%) (Auto) 77 % (31-73) 55 % (31-73) Lymphocytes (%) (Auto) 18 % (24-48) 35 % (24-48) Monocytes (%) (Auto) 5 % (0-9) 9 % (0-9) Eosinophils (%) (Auto) 0 % (0-3) 0 % (0-3) Basophils (%) (Auto) 1 % (0-3) 1 % (0-3) Neutrophils # (Auto) 6.6 x10^3uL (1.8-7.7) 6.1 x10^3uL (1.8-7.7) Lymphocytes # (Auto) 1.5 x10^3/uL (1.0-4.8) 3.9 x10^3/uL (1.0-4.8) Monocytes # (Auto) 0.4 x10^3/uL (0.0-1.1) 1.0 x10^3/uL (0.0-1.1) Eosinophils # (Auto) 0.0 x10^3/uL (0.0-0.7) 0.0 x10^3/uL (0.0-0.7) Basophils # (Auto) 0.1 x10^3/uL (0.0-0.2) 0.1 x10^3/uL (0.0-0.2) Erythrocyte Sedimentation Rate 2 (0-25) Sodium Level 138 mmol/L (136-145) 139 mmol/L (136-145) Potassium Level 4.2 mmol/L (3.5-5.1) 3.7 mmol/L (3.5-5.1) Chloride Level 104 mmol/L (98-107) 104 mmol/L (98-107) Carbon Dioxide Level 26 mmol/L (21-32) 26 mmol/L (21-32) Anion Gap 8 (6-14) 9 (6-14) Blood Urea Nitrogen 9 mg/dL (7-20) 9 mg/dL (7-20) Creatinine 0.9 mg/dL (0.6-1.0) 0.8 mg/dL (0.6-1.0) Estimated GFR (Cockcroft-Gault) 79.6 91.1 BUN/Creatinine Ratio 10 (6-20) 11 (6-20) Glucose Level 163 mg/dL (70-99) 130 mg/dL (70-99) Calcium Level 9.5 mg/dL (8.5-10.1) 9.0 mg/dL (8.5-10.1) Total Bilirubin 0.2 mg/dL (0.2-1.0) 0.3 mg/dL (0.2-1.0) Aspartate Amino Transf (AST/SGOT) 19 U/L (15-37) 15 U/L (15-37) Alanine Aminotransferase (ALT/SGPT) 21 U/L (14-59) 21 U/L (14-59) Alkaline Phosphatase 178 U/L (46-116) 162 U/L (46-116) Total Protein 8.0 g/dL (6.4-8.2) 7.4 g/dL (6.4-8.2) Albumin 3.7 g/dL (3.4-5.0) 3.5 g/dL (3.4-5.0) Albumin/Globulin Ratio 0.9 (1.0-1.7) 0.9 (1.0-1.7) Lactic Acid Level 1.9 mmol/L (0.4-2.0) C-Reactive Protein, Quantitative 20.9 mg/L (0-3.3) Laboratory Tests Test 03/26/17 22:30 03/26/17 23:20 03/26/17 23:30 03/27/17 05:41 Urine Collection Type Unknown Urine Color Yellow Urine Clarity Clear Urine pH 5.5 Urine Specific [place] 1.015 Urine Protein Negative mg/dL (NEG-TRACE) Urine Glucose (UA) Negative mg/dL (NEG) Urine Ketones (Stick) Negative mg/dL (NEG) Urine Blood Negative (NEG) Urine Nitrite Negative (NEG) Urine Bilirubin Negative (NEG) Urine Urobilinogen Dipstick 0.2 mg/dL (0.2 mg/dL) Urine Leukocyte Esterase Negative (NEG) Urine RBC 0 /HPF (0-2) Urine WBC Rare /HPF (0-4) Urine Squamous Epithelial Cells Many /LPF Urine Bacteria Few /HPF (0-FEW) Urine Mucus Marked /LPF White Blood Count 8.7 x10^3/uL (4.0-11.0) 11.1 x10^3/uL (4.0-11.0) Red Blood Count 4.71 x10^6/uL (3.50-5.40) 4.43 x10^6/uL (3.50-5.40) Hemoglobin 14.5 g/dL (12.0-15.5) 13.9 g/dL (12.0-15.5) Hematocrit 42.5 % (36.0-47.0) 39.0 % (36.0-47.0) Mean Corpuscular Volume 90 fL (79-100) 88 fL (79-100) Mean Corpuscular Hemoglobin 31 pg (25-35) 31 pg (25-35) Mean Corpuscular Hemoglobin Concent 34 g/dL (31-37) 36 g/dL (31-37) Red Cell Distribution Width 12.7 % (11.5-14.5) 12.8 % (11.5-14.5) Platelet Count 241 x10^3/uL (140-400) 250 x10^3/uL (140-400) Neutrophils (%) (Auto) 77 % (31-73) 55 % (31-73) Lymphocytes (%) (Auto) 18 % (24-48) 35 % (24-48) Monocytes (%) (Auto) 5 % (0-9) 9 % (0-9) Eosinophils (%) (Auto) 0 % (0-3) 0 % (0-3) Basophils (%) (Auto) 1 % (0-3) 1 % (0-3) Neutrophils # (Auto) 6.6 x10^3uL (1.8-7.7) 6.1 x10^3uL (1.8-7.7) Lymphocytes # (Auto) 1.5 x10^3/uL (1.0-4.8) 3.9 x10^3/uL (1.0-4.8) Monocytes # (Auto) 0.4 x10^3/uL (0.0-1.1) 1.0 x10^3/uL (0.0-1.1) Eosinophils # (Auto) 0.0 x10^3/uL (0.0-0.7) 0.0 x10^3/uL (0.0-0.7) Basophils # (Auto) 0.1 x10^3/uL (0.0-0.2) 0.1 x10^3/uL (0.0-0.2) Erythrocyte Sedimentation Rate 2 (0-25) Sodium Level 138 mmol/L (136-145) 139 mmol/L (136-145) Potassium Level 4.2 mmol/L (3.5-5.1) 3.7 mmol/L (3.5-5.1) Chloride Level 104 mmol/L (98-107) 104 mmol/L (98-107) Carbon Dioxide Level 26 mmol/L (21-32) 26 mmol/L (21-32) Anion Gap 8 (6-14) 9 (6-14) Blood Urea Nitrogen 9 mg/dL (7-20) 9 mg/dL (7-20) Creatinine 0.9 mg/dL (0.6-1.0) 0.8 mg/dL (0.6-1.0) Estimated GFR (Cockcroft-Gault) 79.6 91.1 BUN/Creatinine Ratio 10 (6-20) 11 (6-20) Glucose Level 163 mg/dL (70-99) 130 mg/dL (70-99) Calcium Level 9.5 mg/dL (8.5-10.1) 9.0 mg/dL (8.5-10.1) Total Bilirubin 0.2 mg/dL (0.2-1.0) 0.3 mg/dL (0.2-1.0) Aspartate Amino Transf (AST/SGOT) 19 U/L (15-37) 15 U/L (15-37) Alanine Aminotransferase (ALT/SGPT) 21 U/L (14-59) 21 U/L (14-59) Alkaline Phosphatase 178 U/L (46-116) 162 U/L (46-116) Total Protein 8.0 g/dL (6.4-8.2) 7.4 g/dL (6.4-8.2) Albumin 3.7 g/dL (3.4-5.0) 3.5 g/dL (3.4-5.0) Albumin/Globulin Ratio 0.9 (1.0-1.7) 0.9 (1.0-1.7) Lactic Acid Level 1.9 mmol/L (0.4-2.0) C-Reactive Protein, Quantitative 20.9 mg/L (0-3.3) Assessment and Plan please see full note possible hematoma, smaller chance of abscess will check U/S MK COOLEY II, MD Mar 27, 2017 07:31
[2017-03-27 07:50] VITALS: BP 116/65
[2017-03-27] MEDS: HYDROXYCHLOROQUINE 200 MG TABLET PO SCH ×2 (08:31→20:35)
[2017-03-27] MEDS: PANTOPRAZOLE 40 MG TABLET.DR. PO SCH (08:32)
[2017-03-27] MEDS: GABAPENTIN 100 MG CAPSULE. PO SCH ×2 (08:33→20:35)
[2017-03-27] MEDS: NAPROXEN 500 MG TABLET PO SCH ×2 (08:33→20:34)
[2017-03-27] MEDS: ATENOLOL 25 MG TABLET. PO SCH (08:33)
[2017-03-27] MEDS ORDERED: SMZ/TMP 800/160MG TABLET. PO SCH (09:00)
--- NOTE | 2017-03-27 10:15 | RAD ---
EXAM: Soft tissue ultrasound left knee. HISTORY: Incisional fluid collection left knee. COMPARISON: None. FINDINGS: Sonographic evaluation was performed about the left knee incision. There is edema within the surrounding subcutaneous fat. No fluid collection is seen. IMPRESSION: 1. No fluid collection is identified.
[2017-03-27 11:00] VITALS: BP 115/78
[2017-03-27] MEDS ORDERED: HYDROmorphone 2 MG/ML VIAL IV PRN (11:30)
--- NOTE | 2017-03-27 11:41 | PDOC ---
Provider Note Provider Note Pt seen.H&P dictated. [id number] KEMI MARIANO MD Mar 27, 2017 11:41
--- NOTE | 2017-03-27 13:19 | HP ---
ADMIT DATE: 03/27/2017 LOCATION: [facility]. REASON FOR ADMISSION TO THE HOSPITAL: Fever, nausea, vomiting, headache, recent knee surgery, and removal of hardware; piece of the hardware, not complete removal of the hardware. HISTORY OF PRESENT ILLNESS: The patient is a 51-year-old female patient known to me. She has a history of knee replacement. This was done a couple of years ago, and there was a small piece of metal hanging loose, which was removed on 03/22/2017. She went home. She was having some low-grade fever with chills and headaches, got progressively worse, came to the Emergency Room and was seen by Orthopedics, had a sonogram, no free fluid around the knee and was put on Rocephin. The patient was having some migraine headaches, history of seizures on Dilantin, otherwise she was relatively stable. The patient was started on antibiotics. ID was consulted. Orthopedics was seen. PAST MEDICAL HISTORY: History of left knee arthroplasty, subsequent revision, and last week had a small loose metal removed, history of DVT, seizures, and rheumatoid arthritis. PAST SURGICAL HISTORY: Had a hysterectomy and gallbladder surgery, and surgery in the knee. 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 MEDICATIONS AT HOME: The patient is on albuterol, atenolol 50 mg daily, cyclobenzaprine 10 mg 3 times daily, gabapentin 300 mg three times daily, hydrocodone q. 6 hours., hydroxyzine 200 mg twice a day, naproxen 500 mg twice a day, omeprazole 40 mg daily, oxycodone 7.5 daily, Dilantin 400 mg at bedtime, Bactrim was recently started, and Topamax 100 mg daily. PERSONAL HISTORY: No history of smoking, alcohol, or drug abuse. FAMILY HISTORY: Positive for diabetes. REVIEW OF SYSTEMS: CARDIAC: No chest pain. LUNGS: No cough, sputum. She complains of headaches, mostly in the frontal, low-grade fever with chills. Rest of the 14 systems was reviewed and negative. PHYSICAL EXAMINATION: GENERAL: The patient had a maximum fever of 100.1 here, pulse 88, respirations 20, and blood pressure 147/69, and 99% on room air. HEENT: Head is atraumatic. Pupils are equal. Some congestion in the nose. NECK: Supple. Thyroid not enlarged. JVD not elevated. CHEST: Symmetrical. CARDIOVASCULAR: S1, S2. LUNGS: Clear. ABDOMEN: Soft, no mass palpable. Incision on the left knee looks fine. No redness. EXTREMITIES: No calf tenderness. NEUROLOGIC: Cranial nerves intact. Power 5/5 in all extremities. LABORATORY DATA: Shows white count was 8, went up to 11, hemoglobin 14, and platelets 241. Sedimentation rate was 2. Electrolytes were unremarkable. Glucose of 143. Lactic acid 1.9, C-reactive protein was 21, slightly high. UA was negative. FINAL IMPRESSION: 1. Low grade fever.viral? vs knee infection. 2. Headaches, possibility of sinusitis. 3. Recent surgery on the knee, recent removal of loose metal piece from the knee. 4. History of previous knee replacement surgery x2. 5. History of seizures. 6. History of migraines. PLAN: At this time, admit to hospital, seen by Orthopedics. Had a sonogram negative for any abscess or free fluid around the knee area. ID was consulted and started on Rocephin. We will get a CT of the sinuses. Further recommendation to follow. Check Dilantin levels. KEMI MARIANO MD DR: ARNULFO/risa JOB#: [id number] / [id number] DANIEL
[2017-03-27] MEDS ORDERED: PROMETHAZINE 12.5 MG in IV NORMAL SALINE 50ML 50 ML IV PRN ×2 (13:45→14:00)
--- NOTE | 2017-03-27 14:28 | PDOC ---
Infectious Disease Note Vital Sign Vital Signs Vital Signs Date Time Temp Pulse Resp B/P (MAP) Pulse Ox O2 Delivery O2 Flow Rate FiO2 03/27/17 12:22 93 Room Air 03/27/17 11:00 98.6 81 18 115/78 (90) 98.6 Labs Lab Laboratory Tests Test 03/26/17 22:30 03/26/17 23:20 03/26/17 23:30 03/27/17 05:41 Urine Collection Type Unknown Urine Color Yellow Urine Clarity Clear Urine pH 5.5 Urine Specific [place] 1.015 Urine Protein Negative mg/dL (NEG-TRACE) Urine Glucose (UA) Negative mg/dL (NEG) Urine Ketones (Stick) Negative mg/dL (NEG) Urine Blood Negative (NEG) Urine Nitrite Negative (NEG) Urine Bilirubin Negative (NEG) Urine Urobilinogen Dipstick 0.2 mg/dL (0.2 mg/dL) Urine Leukocyte Esterase Negative (NEG) Urine RBC 0 /HPF (0-2) Urine WBC Rare /HPF (0-4) Urine Squamous Epithelial Cells Many /LPF Urine Bacteria Few /HPF (0-FEW) Urine Mucus Marked /LPF White Blood Count 8.7 x10^3/uL (4.0-11.0) 11.1 x10^3/uL (4.0-11.0) Red Blood Count 4.71 x10^6/uL (3.50-5.40) 4.43 x10^6/uL (3.50-5.40) Hemoglobin 14.5 g/dL (12.0-15.5) 13.9 g/dL (12.0-15.5) Hematocrit 42.5 % (36.0-47.0) 39.0 % (36.0-47.0) Mean Corpuscular Volume 90 fL (79-100) 88 fL (79-100) Mean Corpuscular Hemoglobin 31 pg (25-35) 31 pg (25-35) Mean Corpuscular Hemoglobin Concent 34 g/dL (31-37) 36 g/dL (31-37) Red Cell Distribution Width 12.7 % (11.5-14.5) 12.8 % (11.5-14.5) Platelet Count 241 x10^3/uL (140-400) 250 x10^3/uL (140-400) Neutrophils (%) (Auto) 77 % (31-73) 55 % (31-73) Lymphocytes (%) (Auto) 18 % (24-48) 35 % (24-48) Monocytes (%) (Auto) 5 % (0-9) 9 % (0-9) Eosinophils (%) (Auto) 0 % (0-3) 0 % (0-3) Basophils (%) (Auto) 1 % (0-3) 1 % (0-3) Neutrophils # (Auto) 6.6 x10^3uL (1.8-7.7) 6.1 x10^3uL (1.8-7.7) Lymphocytes # (Auto) 1.5 x10^3/uL (1.0-4.8) 3.9 x10^3/uL (1.0-4.8) Monocytes # (Auto) 0.4 x10^3/uL (0.0-1.1) 1.0 x10^3/uL (0.0-1.1) Eosinophils # (Auto) 0.0 x10^3/uL (0.0-0.7) 0.0 x10^3/uL (0.0-0.7) Basophils # (Auto) 0.1 x10^3/uL (0.0-0.2) 0.1 x10^3/uL (0.0-0.2) Erythrocyte Sedimentation Rate 2 (0-25) Sodium Level 138 mmol/L (136-145) 139 mmol/L (136-145) Potassium Level 4.2 mmol/L (3.5-5.1) 3.7 mmol/L (3.5-5.1) Chloride Level 104 mmol/L (98-107) 104 mmol/L (98-107) Carbon Dioxide Level 26 mmol/L (21-32) 26 mmol/L (21-32) Anion Gap 8 (6-14) 9 (6-14) Blood Urea Nitrogen 9 mg/dL (7-20) 9 mg/dL (7-20) Creatinine 0.9 mg/dL (0.6-1.0) 0.8 mg/dL (0.6-1.0) Estimated GFR (Cockcroft-Gault) 79.6 91.1 BUN/Creatinine Ratio 10 (6-20) 11 (6-20) Glucose Level 163 mg/dL (70-99) 130 mg/dL (70-99) Calcium Level 9.5 mg/dL (8.5-10.1) 9.0 mg/dL (8.5-10.1) Total Bilirubin 0.2 mg/dL (0.2-1.0) 0.3 mg/dL (0.2-1.0) Aspartate Amino Transf (AST/SGOT) 19 U/L (15-37) 15 U/L (15-37) Alanine Aminotransferase (ALT/SGPT) 21 U/L (14-59) 21 U/L (14-59) Alkaline Phosphatase 178 U/L (46-116) 162 U/L (46-116) Total Protein 8.0 g/dL (6.4-8.2) 7.4 g/dL (6.4-8.2) Albumin 3.7 g/dL (3.4-5.0) 3.5 g/dL (3.4-5.0) Albumin/Globulin Ratio 0.9 (1.0-1.7) 0.9 (1.0-1.7) Lactic Acid Level 1.9 mmol/L (0.4-2.0) C-Reactive Protein, Quantitative 20.9 mg/L (0-3.3) Objective Assessment Post-op fever s/p removal metallic foreign body left knee, 03/21 N/V 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 Plan Plan of Care D/c Bactrim and observe. no clear evidence of knee infection f/u BC f/u am labs Antiemetic Thank you [id number] Attending Co-Sign The patient was seen and interviewed as well as examined at the bedside. The chart was reviewed. The case was discussed. Agree with the plan of care. VAIBHAV BAILEY APRN Mar 27, 2017 14:28 DOC KEITA MD Mar 27, 2017 14:29
[2017-03-27 15:00] VITALS: BP 112/60
--- NOTE | 2017-03-27 16:00 | PDOC ---
ORTHO PROGRESS NOTES Subjective Emesis, nausea, feels sick. "knee feels fine" Vitals Vital Signs Date Time Temp Pulse Resp B/P (MAP) Pulse Ox O2 Delivery O2 Flow Rate FiO2 03/27/17 15:00 97.5 59 18 112/60 (77) 90 Room Air 97.5 Labs Laboratory Tests Test 03/26/17 22:30 03/26/17 23:20 03/26/17 23:30 03/27/17 05:41 Urine Collection Type Unknown Urine Color Yellow Urine Clarity Clear Urine pH 5.5 Urine Specific [place] 1.015 Urine Protein Negative mg/dL (NEG-TRACE) Urine Glucose (UA) Negative mg/dL (NEG) Urine Ketones (Stick) Negative mg/dL (NEG) Urine Blood Negative (NEG) Urine Nitrite Negative (NEG) Urine Bilirubin Negative (NEG) Urine Urobilinogen Dipstick 0.2 mg/dL (0.2 mg/dL) Urine Leukocyte Esterase Negative (NEG) Urine RBC 0 /HPF (0-2) Urine WBC Rare /HPF (0-4) Urine Squamous Epithelial Cells Many /LPF Urine Bacteria Few /HPF (0-FEW) Urine Mucus Marked /LPF White Blood Count 8.7 x10^3/uL (4.0-11.0) 11.1 x10^3/uL (4.0-11.0) Red Blood Count 4.71 x10^6/uL (3.50-5.40) 4.43 x10^6/uL (3.50-5.40) Hemoglobin 14.5 g/dL (12.0-15.5) 13.9 g/dL (12.0-15.5) Hematocrit 42.5 % (36.0-47.0) 39.0 % (36.0-47.0) Mean Corpuscular Volume 90 fL (79-100) 88 fL (79-100) Mean Corpuscular Hemoglobin 31 pg (25-35) 31 pg (25-35) Mean Corpuscular Hemoglobin Concent 34 g/dL (31-37) 36 g/dL (31-37) Red Cell Distribution Width 12.7 % (11.5-14.5) 12.8 % (11.5-14.5) Platelet Count 241 x10^3/uL (140-400) 250 x10^3/uL (140-400) Neutrophils (%) (Auto) 77 % (31-73) 55 % (31-73) Lymphocytes (%) (Auto) 18 % (24-48) 35 % (24-48) Monocytes (%) (Auto) 5 % (0-9) 9 % (0-9) Eosinophils (%) (Auto) 0 % (0-3) 0 % (0-3) Basophils (%) (Auto) 1 % (0-3) 1 % (0-3) Neutrophils # (Auto) 6.6 x10^3uL (1.8-7.7) 6.1 x10^3uL (1.8-7.7) Lymphocytes # (Auto) 1.5 x10^3/uL (1.0-4.8) 3.9 x10^3/uL (1.0-4.8) Monocytes # (Auto) 0.4 x10^3/uL (0.0-1.1) 1.0 x10^3/uL (0.0-1.1) Eosinophils # (Auto) 0.0 x10^3/uL (0.0-0.7) 0.0 x10^3/uL (0.0-0.7) Basophils # (Auto) 0.1 x10^3/uL (0.0-0.2) 0.1 x10^3/uL (0.0-0.2) Erythrocyte Sedimentation Rate 2 (0-25) Sodium Level 138 mmol/L (136-145) 139 mmol/L (136-145) Potassium Level 4.2 mmol/L (3.5-5.1) 3.7 mmol/L (3.5-5.1) Chloride Level 104 mmol/L (98-107) 104 mmol/L (98-107) Carbon Dioxide Level 26 mmol/L (21-32) 26 mmol/L (21-32) Anion Gap 8 (6-14) 9 (6-14) Blood Urea Nitrogen 9 mg/dL (7-20) 9 mg/dL (7-20) Creatinine 0.9 mg/dL (0.6-1.0) 0.8 mg/dL (0.6-1.0) Estimated GFR (Cockcroft-Gault) 79.6 91.1 BUN/Creatinine Ratio 10 (6-20) 11 (6-20) Glucose Level 163 mg/dL (70-99) 130 mg/dL (70-99) Calcium Level 9.5 mg/dL (8.5-10.1) 9.0 mg/dL (8.5-10.1) Total Bilirubin 0.2 mg/dL (0.2-1.0) 0.3 mg/dL (0.2-1.0) Aspartate Amino Transf (AST/SGOT) 19 U/L (15-37) 15 U/L (15-37) Alanine Aminotransferase (ALT/SGPT) 21 U/L (14-59) 21 U/L (14-59) Alkaline Phosphatase 178 U/L (46-116) 162 U/L (46-116) Total Protein 8.0 g/dL (6.4-8.2) 7.4 g/dL (6.4-8.2) Albumin 3.7 g/dL (3.4-5.0) 3.5 g/dL (3.4-5.0) Albumin/Globulin Ratio 0.9 (1.0-1.7) 0.9 (1.0-1.7) Lactic Acid Level 1.9 mmol/L (0.4-2.0) C-Reactive Protein, Quantitative 20.9 mg/L (0-3.3) Laboratory Tests Test 03/26/17 22:30 03/26/17 23:20 03/26/17 23:30 03/27/17 05:41 Urine Collection Type Unknown Urine Color Yellow Urine Clarity Clear Urine pH 5.5 Urine Specific [place] 1.015 Urine Protein Negative mg/dL (NEG-TRACE) Urine Glucose (UA) Negative mg/dL (NEG) Urine Ketones (Stick) Negative mg/dL (NEG) Urine Blood Negative (NEG) Urine Nitrite Negative (NEG) Urine Bilirubin Negative (NEG) Urine Urobilinogen Dipstick 0.2 mg/dL (0.2 mg/dL) Urine Leukocyte Esterase Negative (NEG) Urine RBC 0 /HPF (0-2) Urine WBC Rare /HPF (0-4) Urine Squamous Epithelial Cells Many /LPF Urine Bacteria Few /HPF (0-FEW) Urine Mucus Marked /LPF White Blood Count 8.7 x10^3/uL (4.0-11.0) 11.1 x10^3/uL (4.0-11.0) Red Blood Count 4.71 x10^6/uL (3.50-5.40) 4.43 x10^6/uL (3.50-5.40) Hemoglobin 14.5 g/dL (12.0-15.5) 13.9 g/dL (12.0-15.5) Hematocrit 42.5 % (36.0-47.0) 39.0 % (36.0-47.0) Mean Corpuscular Volume 90 fL (79-100) 88 fL (79-100) Mean Corpuscular Hemoglobin 31 pg (25-35) 31 pg (25-35) Mean Corpuscular Hemoglobin Concent 34 g/dL (31-37) 36 g/dL (31-37) Red Cell Distribution Width 12.7 % (11.5-14.5) 12.8 % (11.5-14.5) Platelet Count 241 x10^3/uL (140-400) 250 x10^3/uL (140-400) Neutrophils (%) (Auto) 77 % (31-73) 55 % (31-73) Lymphocytes (%) (Auto) 18 % (24-48) 35 % (24-48) Monocytes (%) (Auto) 5 % (0-9) 9 % (0-9) Eosinophils (%) (Auto) 0 % (0-3) 0 % (0-3) Basophils (%) (Auto) 1 % (0-3) 1 % (0-3) Neutrophils # (Auto) 6.6 x10^3uL (1.8-7.7) 6.1 x10^3uL (1.8-7.7) Lymphocytes # (Auto) 1.5 x10^3/uL (1.0-4.8) 3.9 x10^3/uL (1.0-4.8) Monocytes # (Auto) 0.4 x10^3/uL (0.0-1.1) 1.0 x10^3/uL (0.0-1.1) Eosinophils # (Auto) 0.0 x10^3/uL (0.0-0.7) 0.0 x10^3/uL (0.0-0.7) Basophils # (Auto) 0.1 x10^3/uL (0.0-0.2) 0.1 x10^3/uL (0.0-0.2) Erythrocyte Sedimentation Rate 2 (0-25) Sodium Level 138 mmol/L (136-145) 139 mmol/L (136-145) Potassium Level 4.2 mmol/L (3.5-5.1) 3.7 mmol/L (3.5-5.1) Chloride Level 104 mmol/L (98-107) 104 mmol/L (98-107) Carbon Dioxide Level 26 mmol/L (21-32) 26 mmol/L (21-32) Anion Gap 8 (6-14) 9 (6-14) Blood Urea Nitrogen 9 mg/dL (7-20) 9 mg/dL (7-20) Creatinine 0.9 mg/dL (0.6-1.0) 0.8 mg/dL (0.6-1.0) Estimated GFR (Cockcroft-Gault) 79.6 91.1 BUN/Creatinine Ratio 10 (6-20) 11 (6-20) Glucose Level 163 mg/dL (70-99) 130 mg/dL (70-99) Calcium Level 9.5 mg/dL (8.5-10.1) 9.0 mg/dL (8.5-10.1) Total Bilirubin 0.2 mg/dL (0.2-1.0) 0.3 mg/dL (0.2-1.0) Aspartate Amino Transf (AST/SGOT) 19 U/L (15-37) 15 U/L (15-37) Alanine Aminotransferase (ALT/SGPT) 21 U/L (14-59) 21 U/L (14-59) Alkaline Phosphatase 178 U/L (46-116) 162 U/L (46-116) Total Protein 8.0 g/dL (6.4-8.2) 7.4 g/dL (6.4-8.2) Albumin 3.7 g/dL (3.4-5.0) 3.5 g/dL (3.4-5.0) Albumin/Globulin Ratio 0.9 (1.0-1.7) 0.9 (1.0-1.7) Lactic Acid Level 1.9 mmol/L (0.4-2.0) C-Reactive Protein, Quantitative 20.9 mg/L (0-3.3) X-Rays U/S reviewed, no sign of fluid collection Notes Resting, easily awakens LLE: incision unchanged remains NVI Assessment and Plan Her wound looks ok tome, minimal drainage no hematoma/seroma/abscess no plan on surgical intervention MK COOLEY II, MD Mar 27, 2017 16:00
[2017-03-27 19:00] VITALS: BP 131/62
--- NOTE | 2017-03-27 19:17 | CONS ---
DATE OF CONSULTATION: 03/27/2017 REFERRING PROVIDER: Dr. Kait Pyle. CONSULTING PROVIDER: Ricky Mac MD REASON FOR CONSULTATION: Fever and drainage from the wound. CHIEF COMPLAINT: Left knee pain and headache. HISTORY OF PRESENT ILLNESS: The patient is a 51-year-old female who works here and is well known to me. She recently underwent a foreign body removal from her left knee. She had undergone a left knee revision for malrotation with myself quite some time ago. She has had pain after her knee revision, and we have worked her up for infection which has been negative. She reports that recently she noted that there had been some drainage at her wound, and she has had some fevers and headaches. She tells me her temperature at home was as high as 101.5. She has also been complaining of nausea and vomiting lately. Because of progression of these symptoms, she presented to the Emergency Department and was admitted. I had seen her recently this week and have started her on Bactrim after looking at her wound as a precaution. REVIEW OF SYSTEMS: A 12-point review of systems was negative except as per HPI. ALLERGIES: VANCOMYCIN. PAST MEDICAL HISTORY: History of DVT, hypertension, and seizure disorder. PAST SURGICAL HISTORY: Cholecystectomy, hysterectomy, bilateral knee replacements, left knee revision, and tubal ligation. SOCIAL HISTORY: She lives with family, uses alcohol occasionally, and no tobacco. FAMILY HISTORY: Noncontributory. MEDICATIONS: Reviewed. Please see MRAD. PHYSICAL EXAMINATION: VITAL SIGNS: Reviewed. T-max of 100.1 at our facility. GENERAL: The patient is alert and oriented. In no acute distress, slightly ill-appearing. HEENT: Head normocephalic, atraumatic. Extraocular muscles are intact. CARDIOVASCULAR: Regular rate and rhythm. Dorsalis pedis is palpable. LUNGS: Respirations are unlabored. Symmetric chest rise. ABDOMEN: Soft and nondistended. EXTREMITIES: Her left lower extremity reveals improved erythema around her knee. It was faint several days ago, but it does look better now. She does have some firmness in the korin-incisional area, and there is some bloody drainage present. There is a very small amount of drainage. No effusion at her knee. Normal motor and sensation distally in her left lower extremity. LABORATORY DATA: Reviewed. White count is 11.1 up from 8.7 yesterday. UA was reviewed. IMPRESSION: Possible hematoma versus infection after removal for foreign body from left knee. PLAN: We will be maintain her on antibiotics today. We will get an ultrasound of her korin-incisional area and thigh to see if there is a fluid collection. She may need an irrigation and debridement, and we will plan on doing this tomorrow pending the results of the ultrasound. She can be mobilized and weightbear as tolerated. RICKY MAC MD DR: LUCHO/risa JOB#: [id number] / [id number] DANIEL
[2017-03-27] MEDS ORDERED: PHENYTOIN SODIUM EXTENDED 100 MG CAPSULE PO SCH (21:00)
[2017-03-27] MEDS ORDERED: TOPIRAMATE 100 MG TABLET. PO SCH (21:00)
[2017-03-27] MEDS: MAGNESIUM HYDROXIDE 2,400 MG/30 ML ORAL.SUSP. PO PRN (22:02)
[2017-03-27 23:02] VITALS: BP 132/68
--- NOTE | 2017-03-27 23:31 | CONS ---
DATE OF CONSULTATION: 03/27/2017 This is Rasheed Hernandez, nurse practitioner, dictating for Dr. Golden Keita, Infectious Disease. REFERRING PHYSICIAN: Dr. Ball. REASON FOR CONSULTATION: Postop wound infection. HISTORY OF PRESENT ILLNESS: The patient is a 51-year-old female with a left total knee arthroplasty in 2011 followed by a revision in 07/2016. Postop x-ray revealed a small radiopaque foreign body. The patient elected to wait and see approach. However, she experienced gradual increase of pain and difficulty walking. On 03/21/2017, she was taken to the OR and had removal of a metallic foreign body from the subcutaneous tissue. About 2 days later, she arrived in the ER with worsening pain, swelling and bloody drainage from incision. She was prescribed Bactrim, however, symptoms persisted. She developed fever 102 and chills. On admission, she had normal white blood cell count with a sed rate of 2. Blood cultures were obtained. An ultrasound of the left knee showed edema within the surrounding subcutaneous fat with no fluid collection seen. She was given a one-time dose of Rocephin in the ER. ID has been asked to consult for further evaluation and treatment for possible infection. The patient is complaining of nausea and vomiting. She reports less knee pain and increased range of motion. She continues to take the Bactrim. PAST MEDICAL HISTORY: Rheumatoid arthritis, history of DVT, on warfarin therapy, seizure disorder, diabetes, gastroesophageal reflux disease, hypertension, asthma, sleep apnea on CPAP off and on, dumping syndrome, uterine fibroids status post hysterectomy with bilateral salpingo-oophorectomy. PAST SURGICAL HISTORY: Left total knee arthroplasty in 2011 followed by a revision in 07/2016. Hysterectomy, ____, depression. SOCIAL HISTORY: Nonsmoker. Occasional alcohol use. FAMILY HISTORY: Positive for diabetes. ALLERGIES: Listed VANCOMYCIN CAUSING RED MAN SYNDROME. MEDICATIONS: One time dose of Rocephin in the ER, Bactrim and Plaquenil. Other medications are available and have been reviewed on the DEC. REVIEW OF SYSTEMS: Denies headache, nasal/sinus congestion or sore throat. Denies cough, shortness of air or wheezing. Denies chest pain or palpitations. Denies constipation or diarrhea. Denies rash. Denies muscle aches or joint pains. PHYSICAL EXAMINATION: GENERAL: A tired-appearing female, propped up in bed, in no apparent distress. VITAL SIGNS: Temperature is 98.6, T-max 100.1, blood pressure 115/78, heart rate 81, respiratory rate 18, pulse oximetry 93% on room air. Weight is 239 pounds. BMI of 38. HEENT: Pupils equally round. Normal conjunctivae. Oral mucosa is pink and moist. NECK: Supple. LUNGS: Clear to auscultation. HEART: Normal S1 and S2. ABDOMEN: Obese, bowel sounds are present, soft, nontender. EXTREMITIES: No gross edema or cyanosis. Left knee incision well approximated, minimal bruising. No redness, drainage or warmth. Full flexion and extension. SKIN: Without rash. NEUROLOGIC: Alert and oriented x 3. LABORATORY DATA: WBC 11.1 from 8.7 on admission, hemoglobin 13.9, platelet count 250,000. Sed rate 2. Electrolytes are unremarkable. Creatinine 0.8, BUN 9, glucose 130. Total bilirubin 0.3, AST 15, ALT 21. CRP 20.9, albumin 3.5. Urinalysis unremarkable for infection. Blood cultures pending. Ultrasound per HPI. IMPRESSION: 1. Postop fever. 2. Status post removal of metallic foreign body of the left knee, 03/21/2017. 3. Nausea and vomiting. 4. Intolerance to vancomycin causing red man syndrome. 5. Rheumatoid arthritis. 6. Seizure disorder. PLAN: Discontinue the Bactrim and observe. The left knee shows no signs of infection. We will follow up on morning laboratory values and cultures. Antiemetics to control nausea and vomiting. Supportive care. Thank you, Dr. Ball for asking us to participate in this patient's care. Should you have further questions or concerns, please call. The patient is seen and examined and plan of care implemented by Dr. Golden Keita. GOLDEN KEITA MD DR: VERONICA/risa JOB#: [id number] / [id number]
[2017-03-28] MEDS: oxyCODONE/APAP 7.5/325 1 TAB TABLET PO PRN (00:49)
[2017-03-28 05:07] LABS: BASO % 0 % (0-3); EOS % 1 % (0-3); HEMATOCRIT 39.3 % (36.0-47.0); HEMOGLOBIN 13.4 g/dL (12.0-15.5); LYMPH # 2.4 x10^3/uL (1.0-4.8); LYMPH % 27 % (24-48); MEAN CORPUSCULAR HEMOGLOBIN 31 pg (25-35); MEAN CORPUSCULAR HGB CONC 34 g/dL (31-37); MEAN CORPUSCULAR VOLUME 90 fL (79-100); MONO % 9 % (0-9); NEUT % 64 % (31-73); PLATELET COUNT 214 x10^3/uL (140-400); RED BLOOD COUNT 4.38 x10^6/uL (3.50-5.40); RED CELL DISTRIBUTION WIDTH 12.4 % (11.5-14.5); WHITE BLOOD COUNT 8.9 x10^3/uL (4.0-11.0)
[2017-03-28 07:00] VITALS: BP 106/54
--- NOTE | 2017-03-28 08:59 | RAD ---
Examination: CT head and maxillofacial bones History: History of sinusitis. Comparison: CT maxillofacial bones from 07/28/2015 Procedure: Axial images are obtained of the head from the skull base through the vertex without IV contrast. Axial CT images of the maxillofacial bones performed without contrast. Coronal and sagittal reformats of the maxillofacial bones were performed Findings: The ventricles and sulci are normal for the patient's age. No mass-effect, intracranial mass, midline shift, hemorrhage or obvious acute infarction is identified. Basilar cisterns are patent. Bone windows demonstrate no significant calvarial abnormality. The visualized orbital globes appear intact. The retro-orbital fat is maintained The bilateral frontal sinuses, ethmoidal sinuses, sphenoid sinuses, maxillary sinuses are unopacified. The mastoid air cells are clear The nasal septum is in the midline.. Impression: 1. No acute intracranial process. 2. Unremarkable maxillofacial CT. PQRS Compliance Statement: One or more of the following individualized dose reduction techniques were utilized for this examination: 1. Automated exposure control 2. Adjustment of the mA and/or kV according to patient size 3. Use of iterative reconstruction technique faint
[2017-03-28] MEDS: HYDROXYCHLOROQUINE 200 MG TABLET PO SCH (09:34)
[2017-03-28] MEDS: MAGNESIUM HYDROXIDE 2,400 MG/30 ML ORAL.SUSP. PO PRN (09:34)
[2017-03-28] MEDS: ATENOLOL 25 MG TABLET. PO SCH (09:35)
[2017-03-28] MEDS: NAPROXEN 500 MG TABLET PO SCH (09:35)
[2017-03-28] MEDS: PANTOPRAZOLE 40 MG TABLET.DR. PO SCH (09:35)
[2017-03-28] MEDS: GABAPENTIN 100 MG CAPSULE. PO SCH (09:36)
--- NOTE | 2017-03-28 09:52 | PDOC ---
PROGRESS NOTES Subjective Subjective feels better ,ready to go home Objective Objective Vital Signs Date Time Temp Pulse Resp B/P (MAP) Pulse Ox O2 Delivery O2 Flow Rate FiO2 03/28/17 09:35 76 106/54 03/28/17 07:00 99.6 20 98 Room Air 99.6 Intake and Output 03/28/17 07:00 Intake Total 701.0 ml Balance 701.0 ml Intake Oral 600 ml IV Total 101.0 ml # Voids 5 Physical Exam Abdomen: Normal bowel sounds, Soft Heart: Regular rate, Normal S1 Extremities: No clubbing General: Alert HEENT: Atraumatic Lungs: Clear to auscultation MUSCULOSKELETAL: No deformity, Other Neck: Supple Neuro: Normal speech Psych/Mental Status: Mental status NL Skin: No breakdown Diagnosis Problem List Problems Medical Problems: (1) Wound, surgical, infected Status: Acute Assessment Assessment Problems Medical Problems: (1) Wound, surgical, infected Status: Acute FINAL IMPRESSION: 1. Low grade fever. 2. Headaches, ?possibility of sinusitis. 3. Recent surgery on the knee, recent removal of loose metal piece from the knee. 4. History of previous knee replacement surgery x2. 5. History of seizures. 6. History of migraines. PLAN: no more fevers wbc normal ct sinus -ve. spoke with ID. d/c home. no need for antibiotics.No bacterial infection At this time, admit to hospital, seen by Orthopedics. Had a sonogram negative for any abscess or free fluid around the knee area. ID was consulted and started on Rocephin. We will get a CT of the sinuses. Further recommendation to follow. Check Dilantin levels. Problems: Plan Plan of Care Problems Medical Problems: (1) Wound, surgical, infected Status: Acute Comment Review of Relevant I have reviewed the following items patti (where applicable) has been applied. Labs Laboratory Tests Test 03/28/17 04:40 White Blood Count 8.9 x10^3/uL (4.0-11.0) Red Blood Count 4.38 x10^6/uL (3.50-5.40) Hemoglobin 13.4 g/dL (12.0-15.5) Hematocrit 39.3 % (36.0-47.0) Mean Corpuscular Volume 90 fL (79-100) Mean Corpuscular Hemoglobin 31 pg (25-35) Mean Corpuscular Hemoglobin Concent 34 g/dL (31-37) Red Cell Distribution Width 12.4 % (11.5-14.5) Platelet Count 214 x10^3/uL (140-400) Neutrophils (%) (Auto) 64 % (31-73) Lymphocytes (%) (Auto) 27 % (24-48) Monocytes (%) (Auto) 9 % (0-9) Eosinophils (%) (Auto) 1 % (0-3) Basophils (%) (Auto) 0 % (0-3) Neutrophils # (Auto) 5.7 x10^3uL (1.8-7.7) Lymphocytes # (Auto) 2.4 x10^3/uL (1.0-4.8) Monocytes # (Auto) 0.8 x10^3/uL (0.0-1.1) Eosinophils # (Auto) 0.1 x10^3/uL (0.0-0.7) Basophils # (Auto) 0.0 x10^3/uL (0.0-0.2) Microbiology 03/27/17 Blood Culture - Preliminary, Resulted NO GROWTH AFTER 1 DAY Medications Current Medications Hydromorphone HCl (Dilaudid) 2 mg PRN Q4HRS PRN IV PAIN Last administered on 11:52; Start 03/27/17 at 11:30 Magnesium Hydroxide (Milk Of Magnesia) 2,400 mg PRN DAILY PRN PO CONSTIPATION Last administered on 03/28/17 09:34; Start 03/27/17 at 21:30 Ondansetron HCl (Zofran) 8 mg PRN Q6HRS PRN IV NAUSEA/VOMITING Last administered on 03/27/17 14:19; Start 03/27/17 at 13:34; Stop 03/28/17 at 13:33 Phenytoin Sodium (Dilantin) 400 mg HS PO Last administered on 03/27/17 20:35; Start 03/27/17 at 21:00 Promethazine HCl 12.5 mg/Sodium Chloride 50.5 ml @ 101 mls/hr PRN Q6HRS PRN IV NAUSEA Last administered on 03/27/17 21:28; Start 03/27/17 at 14:00 Promethazine HCl 12.5 mg/Sodium Chloride 50.5 ml @ 101 mls/hr Q6HRS PRN IV NAUSEA Last administered on 03/27/17 14:31; Start 03/27/17 at 13:45; Stop 03/27 at 13:52; Status DC Sumatriptan Succinate (Imitrex) 100 mg PRN Q4HRS PRN PO MIGRAINE HEADACHE; Start 03/27/17 at 11:30 Topiramate (Topamax) 100 mg HS PO Last administered on 03/27/17 20:35; Start 03/27/17 at 21:00 Vitals/I & O Vital Sign - Last 24 Hours 03/27/17 03/27/17 03/27/17 03/27/17 11:00 11:52 12:22 15:00 Temp 98.6 97.5 98.6 97.5 Pulse 81 59 Resp 18 18 B/P (MAP) 115/78 (90) 112/60 (77) Pulse Ox 97 93 93 90 O2 Delivery Room Air Room Air Room Air Room Air 03/27/17 03/27/17 03/27/17 03/27/17 19:00 20:30 20:36 23:02 Temp 97.5 97.7 97.5 97.7 Pulse 70 72 Resp 20 18 20 B/P (MAP) 131/62 (85) 132/68 (89) Pulse Ox 99 96 O2 Delivery Room Air Room Air Room Air Room Air 03/28/17 03/28/17 03/28/17 03/28/17 00:49 01:49 05:53 06:53 Resp 20 20 20 Pulse Ox 96 O2 Delivery Room Air Room Air Room Air Room Air 03/28/17 03/28/17 07:00 09:35 Temp 99.6 99.6 Pulse 76 76 Resp 20 B/P (MAP) 106/54 (71) 106/54 Pulse Ox 98 O2 Delivery Room Air Intake and Output 03/27/17 03/27/17 03/28/17 15:00 23:00 07:00 Intake Total 461.0 ml 240 ml Balance 461.0 ml 240 ml KEMI MARIANO MD Mar 28, 2017 09:52
--- NOTE | 2017-03-28 10:01 | PDOC ---
Provider Note Provider Note Discharge summary dictated. #[id number] KEMI MARIANO MD Mar 28, 2017 10:01
--- NOTE | 2017-03-28 10:36 | PDOC ---
ORTHO PROGRESS NOTES Subjective feels better, no knee pain Vitals Vital Signs Date Time Temp Pulse Resp B/P (MAP) Pulse Ox O2 Delivery O2 Flow Rate FiO2 03/28/17 09:35 76 106/54 03/28/17 07:00 99.6 20 98 Room Air 99.6 Labs Laboratory Tests Test 03/26/17 22:30 03/26/17 23:20 03/26/17 23:30 03/27/17 05:41 Urine Collection Type Unknown Urine Color Yellow Urine Clarity Clear Urine pH 5.5 Urine Specific [place] 1.015 Urine Protein Negative mg/dL (NEG-TRACE) Urine Glucose (UA) Negative mg/dL (NEG) Urine Ketones (Stick) Negative mg/dL (NEG) Urine Blood Negative (NEG) Urine Nitrite Negative (NEG) Urine Bilirubin Negative (NEG) Urine Urobilinogen Dipstick 0.2 mg/dL (0.2 mg/dL) Urine Leukocyte Esterase Negative (NEG) Urine RBC 0 /HPF (0-2) Urine WBC Rare /HPF (0-4) Urine Squamous Epithelial Cells Many /LPF Urine Bacteria Few /HPF (0-FEW) Urine Mucus Marked /LPF White Blood Count 8.7 x10^3/uL (4.0-11.0) 11.1 x10^3/uL (4.0-11.0) Red Blood Count 4.71 x10^6/uL (3.50-5.40) 4.43 x10^6/uL (3.50-5.40) Hemoglobin 14.5 g/dL (12.0-15.5) 13.9 g/dL (12.0-15.5) Hematocrit 42.5 % (36.0-47.0) 39.0 % (36.0-47.0) Mean Corpuscular Volume 90 fL (79-100) 88 fL (79-100) Mean Corpuscular Hemoglobin 31 pg (25-35) 31 pg (25-35) Mean Corpuscular Hemoglobin Concent 34 g/dL (31-37) 36 g/dL (31-37) Red Cell Distribution Width 12.7 % (11.5-14.5) 12.8 % (11.5-14.5) Platelet Count 241 x10^3/uL (140-400) 250 x10^3/uL (140-400) Neutrophils (%) (Auto) 77 % (31-73) 55 % (31-73) Lymphocytes (%) (Auto) 18 % (24-48) 35 % (24-48) Monocytes (%) (Auto) 5 % (0-9) 9 % (0-9) Eosinophils (%) (Auto) 0 % (0-3) 0 % (0-3) Basophils (%) (Auto) 1 % (0-3) 1 % (0-3) Neutrophils # (Auto) 6.6 x10^3uL (1.8-7.7) 6.1 x10^3uL (1.8-7.7) Lymphocytes # (Auto) 1.5 x10^3/uL (1.0-4.8) 3.9 x10^3/uL (1.0-4.8) Monocytes # (Auto) 0.4 x10^3/uL (0.0-1.1) 1.0 x10^3/uL (0.0-1.1) Eosinophils # (Auto) 0.0 x10^3/uL (0.0-0.7) 0.0 x10^3/uL (0.0-0.7) Basophils # (Auto) 0.1 x10^3/uL (0.0-0.2) 0.1 x10^3/uL (0.0-0.2) Erythrocyte Sedimentation Rate 2 (0-25) Sodium Level 138 mmol/L (136-145) 139 mmol/L (136-145) Potassium Level 4.2 mmol/L (3.5-5.1) 3.7 mmol/L (3.5-5.1) Chloride Level 104 mmol/L (98-107) 104 mmol/L (98-107) Carbon Dioxide Level 26 mmol/L (21-32) 26 mmol/L (21-32) Anion Gap 8 (6-14) 9 (6-14) Blood Urea Nitrogen 9 mg/dL (7-20) 9 mg/dL (7-20) Creatinine 0.9 mg/dL (0.6-1.0) 0.8 mg/dL (0.6-1.0) Estimated GFR (Cockcroft-Gault) 79.6 91.1 BUN/Creatinine Ratio 10 (6-20) 11 (6-20) Glucose Level 163 mg/dL (70-99) 130 mg/dL (70-99) Calcium Level 9.5 mg/dL (8.5-10.1) 9.0 mg/dL (8.5-10.1) Total Bilirubin 0.2 mg/dL (0.2-1.0) 0.3 mg/dL (0.2-1.0) Aspartate Amino Transf (AST/SGOT) 19 U/L (15-37) 15 U/L (15-37) Alanine Aminotransferase (ALT/SGPT) 21 U/L (14-59) 21 U/L (14-59) Alkaline Phosphatase 178 U/L (46-116) 162 U/L (46-116) Total Protein 8.0 g/dL (6.4-8.2) 7.4 g/dL (6.4-8.2) Albumin 3.7 g/dL (3.4-5.0) 3.5 g/dL (3.4-5.0) Albumin/Globulin Ratio 0.9 (1.0-1.7) 0.9 (1.0-1.7) Lactic Acid Level 1.9 mmol/L (0.4-2.0) C-Reactive Protein, Quantitative 20.9 mg/L (0-3.3) Test 03/27/17 05:42 03/28/17 04:40 Phenytoin (Dilantin) Level 8.3 mcg/mL (10.0-20.0) Phenytoin Last Dose Date Phenytoin Last Dose Time White Blood Count 8.9 x10^3/uL (4.0-11.0) Red Blood Count 4.38 x10^6/uL (3.50-5.40) Hemoglobin 13.4 g/dL (12.0-15.5) Hematocrit 39.3 % (36.0-47.0) Mean Corpuscular Volume 90 fL (79-100) Mean Corpuscular Hemoglobin 31 pg (25-35) Mean Corpuscular Hemoglobin Concent 34 g/dL (31-37) Red Cell Distribution Width 12.4 % (11.5-14.5) Platelet Count 214 x10^3/uL (140-400) Neutrophils (%) (Auto) 64 % (31-73) Lymphocytes (%) (Auto) 27 % (24-48) Monocytes (%) (Auto) 9 % (0-9) Eosinophils (%) (Auto) 1 % (0-3) Basophils (%) (Auto) 0 % (0-3) Neutrophils # (Auto) 5.7 x10^3uL (1.8-7.7) Lymphocytes # (Auto) 2.4 x10^3/uL (1.0-4.8) Monocytes # (Auto) 0.8 x10^3/uL (0.0-1.1) Eosinophils # (Auto) 0.1 x10^3/uL (0.0-0.7) Basophils # (Auto) 0.0 x10^3/uL (0.0-0.2) Laboratory Tests Test 03/28/17 04:40 White Blood Count 8.9 x10^3/uL (4.0-11.0) Red Blood Count 4.38 x10^6/uL (3.50-5.40) Hemoglobin 13.4 g/dL (12.0-15.5) Hematocrit 39.3 % (36.0-47.0) Mean Corpuscular Volume 90 fL (79-100) Mean Corpuscular Hemoglobin 31 pg (25-35) Mean Corpuscular Hemoglobin Concent 34 g/dL (31-37) Red Cell Distribution Width 12.4 % (11.5-14.5) Platelet Count 214 x10^3/uL (140-400) Neutrophils (%) (Auto) 64 % (31-73) Lymphocytes (%) (Auto) 27 % (24-48) Monocytes (%) (Auto) 9 % (0-9) Eosinophils (%) (Auto) 1 % (0-3) Basophils (%) (Auto) 0 % (0-3) Neutrophils # (Auto) 5.7 x10^3uL (1.8-7.7) Lymphocytes # (Auto) 2.4 x10^3/uL (1.0-4.8) Monocytes # (Auto) 0.8 x10^3/uL (0.0-1.1) Eosinophils # (Auto) 0.1 x10^3/uL (0.0-0.7) Basophils # (Auto) 0.0 x10^3/uL (0.0-0.2) Notes A and A in bed incision looks good remains NVI LLE Assessment and Plan ok to go home from my standpoint f/u with me has already been scheduled MK COOLEY II, MD Mar 28, 2017 10:36
[2017-03-28 10:48] VITALS: BP 134/72
--- NOTE | 2017-03-28 10:57 | PDOC ---
Infectious Disease Note Subjective Subjective feeling fine ROS ROS GEN: Denies fevers, chills, sweats HEENT: Denies blurred vision, sore throat CV: Denies chest pain RESP: Denies shortness of air, cough GI: Denies n/v/d NEURO: Denies confusion, dizziness MSK: Denies weakness, joint pain/swelling Vital Sign Vital Signs Vital Signs Date Time Temp Pulse Resp B/P (MAP) Pulse Ox O2 Delivery O2 Flow Rate FiO2 03/28/17 10:48 98.6 64 20 134/72 (92) 93 Room Air 98.6 Physical Exam PHYSICAL EXAM GENERAL: NAD, Alert HEENT: PERRL, OC/OP NECK: Supple, no JVD, no LN LUNGS: Clear HEART: S1S2, no gallop, no murmur ABD: Soft, NT, no organomegaly, no rebound EXT: No edema, no cyanosis, leg incision area looks good POND SCALER: Alert, oriented x 3, no focal neurologic deficit SKIN: No rash IV: ok Labs Lab Laboratory Tests Test 03/28/17 04:40 White Blood Count 8.9 x10^3/uL (4.0-11.0) Red Blood Count 4.38 x10^6/uL (3.50-5.40) Hemoglobin 13.4 g/dL (12.0-15.5) Hematocrit 39.3 % (36.0-47.0) Mean Corpuscular Volume 90 fL (79-100) Mean Corpuscular Hemoglobin 31 pg (25-35) Mean Corpuscular Hemoglobin Concent 34 g/dL (31-37) Red Cell Distribution Width 12.4 % (11.5-14.5) Platelet Count 214 x10^3/uL (140-400) Neutrophils (%) (Auto) 64 % (31-73) Lymphocytes (%) (Auto) 27 % (24-48) Monocytes (%) (Auto) 9 % (0-9) Eosinophils (%) (Auto) 1 % (0-3) Basophils (%) (Auto) 0 % (0-3) Neutrophils # (Auto) 5.7 x10^3uL (1.8-7.7) Lymphocytes # (Auto) 2.4 x10^3/uL (1.0-4.8) Monocytes # (Auto) 0.8 x10^3/uL (0.0-1.1) Eosinophils # (Auto) 0.1 x10^3/uL (0.0-0.7) Basophils # (Auto) 0.0 x10^3/uL (0.0-0.2) Objective Assessment fever ? 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 Plan Plan of Care off antibiotics f/u BC f/u am labs Antiemetic d/c ok from ID stand point DOC KEITA MD Mar 28, 2017 10:57
--- NOTE | 2017-03-28 11:09 | DS ---
DATE OF DISCHARGE: REASON FOR ADMISSION TO THE HOSPITAL: Fever, nausea, vomiting. CONSULTATIONS: Dr. Mac, Orthopedics; Dr. Golden Michel. PROCEDURES DONE: CT head and ultrasound of the knee. COMPLICATIONS NOTED: None. HOSPITAL COURSE: The patient is a 51-year-old female with left knee arthroplasty in 2011 and had a revision in 2016 and postop she was found to have a small radio-opaque foreign body causing pain, which was removed on 03/21/2017. She was sent home same day and 2 days later, she was having pain and some nausea, fever at home, was brought to the hospital and the patient was given Bactrim by Orthopedics. When the patient came in she was having a lot of nausea, vomiting and was given Rocephin, seen by Ortho as well as Infectious Disease. Blood culture was negative. The incision looks fine. Sonogram did not show any abscess or fluid collection in the knee. The patient had a CT of the sinuses. No infection. The patient had a lot of nausea and vomiting. She vomited once and she felt better after that. It was felt that probably she may be having some viral gastroenteritis, may be causing the problem, and antibiotics was discontinued and white count was normal. She was feeling better. She was discharged. FINAL DIAGNOSES: 1. Fever, probably secondary to viral gastroenteritis. 2. Recent removal of foreign body from the knee, last week. 3. History of total knee arthroplasty in 2011 followed by revision in 2016. 4. History of seizures. 5. History of migraines. 6. History of hypertension. The patient is feeling better. Discharged home. No antibiotics. Continue her home medications. Follow up in the office, orthopedic as well as primary care. Her white count was normal, sed rate was 2, Dilantin was 8, C-reactive protein was slightly high at 20, but she has rheumatoid arthritis, may be causing problems with elevated C-reactive protein. KEMI MARIANO MD DR: ARNULFO/risa JOB#: [id number] / [id number]
== END 2017-03-28 12:15 | disposition home or self-care (01) ==
LOC: ER 22:07 → 5 SOUTH 03-27 00:32
PROVIDERS: ADMIT Internal Medicine; ATTEND Internal Medicine
DX: T81.4XXA Infection following a procedure, initial encounter (principal); R50.82 Postprocedural fever; R11.0 Nausea; R11.10 Vomiting, unspecified; G40.909 Epilepsy, unspecified, not intractable, without status epilepticus; G43.909 Migraine, unspecified, not intractable, without status migrainosus; I10 Essential (primary) hypertension; M06.9 Rheumatoid arthritis, unspecified; E11.9 Type 2 diabetes mellitus without complications; J45.909 Unspecified asthma, uncomplicated; G47.30 Sleep apnea, unspecified; K21.9 Gastro-esophageal reflux disease without esophagitis; F32.9 Major depressive disorder, single episode, unspecified; L27.0 Generalized skin eruption due to drugs and medicaments taken internally; T36.8X5A Adverse effect of other systemic antibiotics, initial encounter; Y83.8 Other surgical procedures as the cause of abnormal reaction of the patient, or of later complication, without mention of misadventure at the time of the procedure; Y92.89 Other specified places as the place of occurrence of the external cause; Z96.653 Presence of artificial knee joint, bilateral; Z86.718 Personal history of other venous thrombosis and embolism; Z79.01 Long term (current) use of anticoagulants; Z90.710 Acquired absence of both cervix and uterus; Z83.3 Family history of diabetes mellitus
CPT/HCPCS: 36415; 70450; 70486; 76881; 80053; 80185; 81001; 83605; 85027; 85651; 86140; 87040; 94250; 94760; 96365; 96366; 96367; 96375; 96376; 99285; G0378; J0690; J1170; J2270; J2405; J2550; G0379

== ENCOUNTER → 2017-05-03 | Outpatient (CLI) | payer OTHER, MEDICARE ==
[~2017-05-03] MED LIST changes: +OXYC-327 PO
--- NOTE | 2017-05-03 13:53 | KCIC ---
Bilateral 3 view hand HISTORY: Polyarthralgia. COMPARISON: None Right hand Joint spaces are intact. Minimal spurring at the metacarpophalangeal and interphalangeal joints. No marginal erosion. Soft tissues appear unremarkable. No significant periosteal reaction. No acute fracture or dislocation. Left hand Minimal spurring at metacarpal phalangeal and interphalangeal joints. Joint spaces are preserved. No marginal erosion. No acute fracture or dislocation. IMPRESSION: Minimal degenerative spurring without other radiographic abnormality. Electronically signed by: Harrison Mar MD (05/03/2017 1:49 PM) [facility]
== END | disposition home or self-care (01) ==
LOC: KCIC 12:58
PROVIDERS: ATTEND Internal Medicine Rheumatology
DX: M79.642 Pain in left hand (principal); M79.641 Pain in right hand
CPT/HCPCS: 73130

== ENCOUNTER → 2017-06-28 | Outpatient (CLI) | payer OTHER ==
--- NOTE | 2017-06-28 15:48 | RAD ---
DATE: 06/28/2017 EXAM: DIGITAL SCREEN BILAT W/CAD HISTORY: Screening COMPARISON: 2 years earlier This study was interpreted with the benefit of Computerized Aided Detection (CAD). FINDINGS: Breast Density: HETERO The breast parenchyma Is heterogeneiously dense, which could reduce sensitivity of mammography. Breast parenchyma level C. There has not been a significant change in the appearance of the breasts when compared to the previous exam lymph nodes are noted in both axilla IMPRESSION: Benign finding BI-RADS CATEGORY: 2 BENIGN FINDING(S) RECOMMENDED FOLLOW-UP: 12M 12 MONTH FOLLOW-UP PQRS compliance statement: Patient information was entered into a reminder system with a target due date 06/28/2018 for the next mammogram. Mammography is a sensitive method for finding small breast cancers, but it does not detect them all and is not a substitute for careful clinical examination. A negative mammogram does not negate a clinically suspicious finding and should not result in delay in biopsying a clinically suspicious abnormality. "Our facility is accredited by the [employer] Mammography Program."
[2017-06-28 15:57] LABS: BILIRUBIN,URINE NEGATIVE (NEG); GLUCOSE,URINE NEGATIVE (NEG); NITRITE,URINE POSITIVE (NEG); PROTEIN,URINE NEGATIVE (NEG-TRACE); UROBILINOGEN,URINE 0.2 mg/dL (0.2 mg/dL)
[2017-06-28 15:58] LABS: BASO % 0 % (0-3); EOS % 0 % (0-3); HEMOGLOBIN 14.2 g/dL (12.0-15.5); LYMPH # 2.5 x10^3/uL (1.0-4.8); LYMPH % 41 % (24-48); MEAN CORPUSCULAR HEMOGLOBIN 32 pg (25-35); MEAN CORPUSCULAR HGB CONC 35 g/dL (31-37); MEAN CORPUSCULAR VOLUME 91 fL (79-100); MONO % 9 % (0-9); NEUT % 49 % (31-73); PLATELET COUNT 210 x10^3/uL (140-400); RED CELL DISTRIBUTION WIDTH 12.5 % (11.5-14.5)
[2017-06-28 16:05] LABS: BACTERIA,URINE MANY /HPF (0-FEW); RBC,URINE 0 /HPF (0-2)
[2017-06-28 16:09] LABS: ALBUMIN 4.1 g/dL (3.4-5.0); ALBUMIN/GLOBULIN RATIO 1.1 (1.0-1.7); ALK PHOS 186 U/L (46-116); ALT (SGPT) 20 U/L (14-59); ANION GAP 10 (6-14); AST (SGOT) 15 U/L (15-37); BLOOD UREA NITROGEN 8 mg/dL (7-20); BUN/CREATININE RATIO 10 (6-20); CALCIUM 9.1 mg/dL (8.5-10.1); CARBON DIOXIDE 27 mmol/L (21-32); CHLORIDE 104 mmol/L (98-107); CHOLESTEROL 199 mg/dL (0-200); CREATININE 0.8 mg/dL (0.6-1.0); GFR 90.8; GLUCOSE 111 mg/dL (70-99); HDLC 74 mg/dL (40-60); NON-HDL CHOLESTEROL 125 mg/dL (0-129); POTASSIUM 3.7 mmol/L (3.5-5.1); SODIUM 141 mmol/L (136-145); TOTAL BILIRUBIN 0.4 mg/dL (0.2-1.0); TOTAL PROTEIN 7.9 g/dL (6.4-8.2); TRIGLYCERIDES 59 mg/dL (0-150)
[2017-06-28 16:12] LABS: CHOLESTEROL/HDL RATIO 2.7
== END | disposition home or self-care (01) ==
LOC: LAB 15:08
PROVIDERS: ATTEND Internal Medicine
DX: Z12.31 Encounter for screening mammogram for malignant neoplasm of breast (principal); I10 Essential (primary) hypertension; R56.9 Unspecified convulsions; Z78.0 Asymptomatic menopausal state
CPT/HCPCS: 80053; 80061; 80185; 81001; 84443; 85025; G0202; 36415; 83036; 77067

== ENCOUNTER 2017-10-15 18:14 | Emergency (ER) | payer OTHER ==
[2017-10-15] MEDS: IPRATRPIUM/ALBUTEROL 0.5/2.5MG 3 ML NEBU. NEB (18:46)
[2017-10-15 18:57] LABS: INFLUENZA A PATIENT POSITIVE (NEGATIVE); INFLUENZA B PATIENT NEGATIVE (NEGATIVE); OBC FLU VALID
== END 2017-10-15 19:09 | disposition home or self-care (01) ==
LOC: ER 18:14
DX: J09.X2 Influenza due to identified novel influenza A virus with other respiratory manifestations (principal); I10 Essential (primary) hypertension; Z88.1 Allergy status to other antibiotic agents
CPT/HCPCS: 87804; 87804-59; 94640; 99284; J7620

== ENCOUNTER → 2017-10-26 | Outpatient (CLI) | payer OTHER ==
[2017-10-26 14:42] LABS: ADD MAN DIFF? NO
[2017-10-26 14:50] LABS: BASO % 0 % (0-3); EOS % 1 % (0-3); HEMATOCRIT 42.7 % (36.0-47.0); HEMOGLOBIN 14.3 g/dL (12.0-15.5); LYMPH # 2.3 x10^3/uL (1.0-4.8); LYMPH % 36 % (24-48); MEAN CORPUSCULAR HEMOGLOBIN 31 pg (25-35); MEAN CORPUSCULAR HGB CONC 34 g/dL (31-37); MEAN CORPUSCULAR VOLUME 92 fL (79-100); MONO # 0.4 x10^3/uL (0.0-1.1); MONO % 7 % (0-9); NEUT # 3.6 x10^3uL (1.8-7.7); NEUT % 56 % (31-73); PLATELET COUNT 234 x10^3/uL (140-400); RED BLOOD COUNT 4.66 x10^6/uL (3.50-5.40); RED CELL DISTRIBUTION WIDTH 12.9 % (11.5-14.5); WHITE BLOOD COUNT 6.5 x10^3/uL (4.0-11.0)
[2017-10-26 15:06] LABS: ALBUMIN 3.9 g/dL (3.4-5.0); ALK PHOS 162 U/L (46-116); ALT (SGPT) 20 U/L (14-59); ANION GAP 8 (6-14); AST (SGOT) 13 U/L (15-37); BLOOD UREA NITROGEN 11 mg/dL (7-20); BUN/CREATININE RATIO 14 (6-20); CALCIUM 8.9 mg/dL (8.5-10.1); CARBON DIOXIDE 29 mmol/L (21-32); CHLORIDE 106 mmol/L (98-107); CREATININE 0.8 mg/dL (0.6-1.0); GFR 90.8; GLUCOSE 123 mg/dL (70-99); POTASSIUM 3.9 mmol/L (3.5-5.1); SODIUM 143 mmol/L (136-145); TOTAL BILIRUBIN 0.4 mg/dL (0.2-1.0); TOTAL PROTEIN 7.8 g/dL (6.4-8.2)
== END | disposition home or self-care (01) ==
LOC: LAB 14:24
DX: I10 Essential (primary) hypertension (principal); R56.9 Unspecified convulsions
CPT/HCPCS: 36415; 80053; 80185; 85025

== ENCOUNTER → 2017-11-29 | Outpatient (CLI) | payer OTHER ==
[2017-11-29 14:26] LABS: PHENY 8.4 mcg/mL (10.0-20.0)
== END | disposition home or self-care (01) ==
LOC: LAB 13:50
DX: R56.9 Unspecified convulsions (principal)
CPT/HCPCS: 36415; 80185

== ENCOUNTER → 2018-02-08 | Outpatient (CLI) | payer OTHER | END | disposition home or self-care (01) | LOC: MRI 08:48 | DX: M25.572 Pain in left ankle and joints of left foot (principal); I10 Essential (primary) hypertension; E11.9 Type 2 diabetes mellitus without complications | CPT/HCPCS: 73721 ==

== ENCOUNTER → 2018-03-02 | Outpatient (CLI) | payer OTHER | END | disposition home or self-care (01) | LOC: US 09:47 | DX: M79.89 Other specified soft tissue disorders (principal); R60.0 Localized edema | CPT/HCPCS: 93971 ==

== ENCOUNTER → 2018-03-24 | Outpatient (CLI) | payer OTHER ==
[2018-03-24 14:30] LABS: ADD MAN DIFF? NO
[2018-03-24 14:39] LABS: BASO % 0 % (0-3); EOS % 1 % (0-3); HEMATOCRIT 41.4 % (36.0-47.0); HEMOGLOBIN 14.2 g/dL (12.0-15.5); LYMPH # 2.2 x10^3/uL (1.0-4.8); LYMPH % 37 % (24-48); MEAN CORPUSCULAR HEMOGLOBIN 31 pg (25-35); MEAN CORPUSCULAR HGB CONC 34 g/dL (31-37); MEAN CORPUSCULAR VOLUME 91 fL (79-100); MONO # 0.6 x10^3/uL (0.0-1.1); MONO % 9 % (0-9); NEUT # 3.2 x10^3uL (1.8-7.7); NEUT % 53 % (31-73); PLATELET COUNT 204 x10^3/uL (140-400); RED BLOOD COUNT 4.53 x10^6/uL (3.50-5.40); RED CELL DISTRIBUTION WIDTH 12.6 % (11.5-14.5); WHITE BLOOD COUNT 6.1 x10^3/uL (4.0-11.0)
[2018-03-24 14:50] LABS: ALBUMIN 3.8 g/dL (3.4-5.0); ALBUMIN/GLOBULIN RATIO 1.1 (1.0-1.7); ALK PHOS 150 U/L (46-116); ALT (SGPT) 23 U/L (14-59); ANION GAP 6 (6-14); AST (SGOT) 14 U/L (15-37); BLOOD UREA NITROGEN 13 mg/dL (7-20); BUN/CREATININE RATIO 13 (6-20); CALCIUM 8.8 mg/dL (8.5-10.1); CARBON DIOXIDE 29 mmol/L (21-32); CHLORIDE 106 mmol/L (98-107); GFR 70.2; GLUCOSE 148 mg/dL (70-99); PHENY 12.4 mcg/mL (10.0-20.0); POTASSIUM 3.8 mmol/L (3.5-5.1); SODIUM 141 mmol/L (136-145); TOTAL BILIRUBIN 0.4 mg/dL (0.2-1.0); TOTAL PROTEIN 7.2 g/dL (6.4-8.2)
== END | disposition home or self-care (01) ==
LOC: LAB 14:13
DX: R56.9 Unspecified convulsions (principal)
CPT/HCPCS: 36415; 80053; 80185; 85025

== ENCOUNTER → 2018-05-04 | Outpatient (CLI) | payer OTHER ==
[2018-05-04 08:05] LABS: BARBITURATES NEG (NEG); BENZODIAZEPINES NEG (NEG); CANNABINOIDS NEG (NEG); COCAINE NEG (NEG); METHADONE NEG (NEG); OPIATES POS (NEG); PHENCYCLIDINE NEG (NEG)
[2018-05-04 08:17] LABS: AMPHETAMINE/METHAMPHETAMINE NEG (NEG); ETHANOL, URINE NEG (NEG)
== END | disposition home or self-care (01) ==
LOC: LAB 07:27
DX: Z51.81 Encounter for therapeutic drug level monitoring (principal); Z79.891 Long term (current) use of opiate analgesic; Z79.899 Other long term (current) drug therapy
CPT/HCPCS: 80307

== ENCOUNTER → 2018-07-06 | Outpatient (CLI) | payer OTHER ==
[2017-10-15 18:15] VITALS: BP 160/69
[~2018-07-06] MED LIST changes: +NAPR-514 PO; +NAPR-683 PO; -NAPR500T PO; -NAPR500T3 PO; +OSEL75CA PO
[2018-07-06 10:19] LABS: BASO % 0 % (0-3); BILIRUBIN,URINE NEGATIVE (NEG); CLARITY,URINE CLEAR; COLOR,URINE YELLOW; EOS % 0 % (0-3); HEMATOCRIT 42.1 % (36.0-47.0); HEMOGLOBIN 14.8 g/dL (12.0-15.5); LYMPH # 2.4 x10^3/uL (1.0-4.8); LYMPH % 33 % (24-48); MEAN CORPUSCULAR HEMOGLOBIN 32 pg (25-35); MEAN CORPUSCULAR HGB CONC 35 g/dL (31-37); MEAN CORPUSCULAR VOLUME 90 fL (79-100); MONO # 0.5 x10^3/uL (0.0-1.1); MONO % 7 % (0-9); NEUT # 4.4 x10^3uL (1.8-7.7); NEUT % 59 % (31-73); NITRITE,URINE POSITIVE (NEG); PLATELET COUNT 239 x10^3/uL (140-400); PROTEIN,URINE NEGATIVE (NEG-TRACE); RED BLOOD COUNT 4.66 x10^6/uL (3.50-5.40); RED CELL DISTRIBUTION WIDTH 12.4 % (11.5-14.5); UROBILINOGEN,URINE 0.2 mg/dL (0.2 mg/dL); WHITE BLOOD COUNT 7.4 x10^3/uL (4.0-11.0)
[2018-07-06 10:31] LABS: BACTERIA,URINE MANY /HPF (0-FEW); RBC,URINE 0 /HPF (0-2); SQUAMOUS EPITHELIAL CELL,UR FEW /LPF
[2018-07-06 10:35] LABS: ALBUMIN 3.9 g/dL (3.4-5.0); ALK PHOS 167 U/L (46-116); ALT (SGPT) 21 U/L (14-59); ANION GAP 10 (6-14); AST (SGOT) 12 U/L (15-37); BLOOD UREA NITROGEN 11 mg/dL (7-20); BUN/CREATININE RATIO 14 (6-20); CALCIUM 9.7 mg/dL (8.5-10.1); CARBON DIOXIDE 26 mmol/L (21-32); CHLORIDE 104 mmol/L (98-107); CHOLESTEROL 186 mg/dL (0-200); CHOLESTEROL/HDL RATIO 3.2; CREATININE 0.8 mg/dL (0.6-1.0); GFR 90.4; GLUCOSE 202 mg/dL (70-99); HDLC 58 mg/dL (40-60); LDLC 114 mg/dL (0-100); PHENY 5.6 mcg/mL (10.0-20.0); SODIUM 140 mmol/L (136-145); TOTAL BILIRUBIN 0.5 mg/dL (0.2-1.0); TOTAL PROTEIN 7.9 g/dL (6.4-8.2); TRIGLYCERIDES 68 mg/dL (0-150); VLDLC 14 mg/dL (0-40)
[2018-07-06 23:07] LABS: HEMOGLOBIN A1C 7.5 % (4.8-5.6)
== END | disposition home or self-care (01) ==
LOC: LAB 09:53
PROVIDERS: ATTEND Internal Medicine
DX: Z00.01 Encounter for general adult medical examination with abnormal findings (principal); R56.9 Unspecified convulsions; I10 Essential (primary) hypertension; E11.9 Type 2 diabetes mellitus without complications; G43.909 Migraine, unspecified, not intractable, without status migrainosus; K21.9 Gastro-esophageal reflux disease without esophagitis; Z79.01 Long term (current) use of anticoagulants; Z96.653 Presence of artificial knee joint, bilateral; Z90.722 Acquired absence of ovaries, bilateral; Z79.899 Other long term (current) drug therapy
CPT/HCPCS: 36415; 80053; 80061; 80185; 81001; 83036; 84443; 85025; 87086

== ENCOUNTER → 2018-07-12 | Outpatient (CLI) | payer OTHER ==
[2017-10-15 18:15] VITALS: BP 160/69
--- NOTE | 2018-07-12 10:04 | RAD ---
DATE: 07/12/2018 EXAM: MAMMO JAMAL SCREENING BILATERAL HISTORY: Routine screening COMPARISON: 06/28/2017 This study was interpreted with the benefit of Computerized Aided Detection (CAD). Breast Density: HETERO The breast parenchyma is heterogenously dense, which could reduce sensitivity of mammography. Breast parenchyma level C. FINDINGS: 2-D and 3-D tomosynthesis imaging was performed in CC and MLO projections. No new or enlarging breast densities are seen. No spiculated mass or architectural distortion is evident. No suspicious microcalcifications are identified. IMPRESSION: Stable mammograms without evidence of malignancy. BI-RADS CATEGORY: 2 BENIGN FINDING(S) RECOMMENDED FOLLOW-UP: 12M 12 MONTH FOLLOW-UP PQRS compliance statement: Patient information was entered into a reminder system with a target due date for the next mammogram. Mammography is a sensitive method for finding small breast cancers, but it does not detect them all and is not a substitute for careful clinical examination. A negative mammogram does not negate a clinically suspicious finding and should not result in delay in biopsying a clinically suspicious abnormality. "Our facility is accredited by the [employer] Mammography Program."
== END | disposition home or self-care (01) ==
LOC: MAMMO 07:48
PROVIDERS: ATTEND Internal Medicine
DX: Z12.31 Encounter for screening mammogram for malignant neoplasm of breast (principal); I10 Essential (primary) hypertension; E11.9 Type 2 diabetes mellitus without complications; G43.909 Migraine, unspecified, not intractable, without status migrainosus; K21.9 Gastro-esophageal reflux disease without esophagitis; Z90.722 Acquired absence of ovaries, bilateral; Z96.653 Presence of artificial knee joint, bilateral; Z90.49 Acquired absence of other specified parts of digestive tract; Z88.1 Allergy status to other antibiotic agents; Z88.3 Allergy status to other anti-infective agents; Z82.49 Family history of ischemic heart disease and other diseases of the circulatory system
CPT/HCPCS: 77063; 77067

== ENCOUNTER 2018-10-04 10:17 | Emergency (ER) | payer OTHER ==
[~2018-10-04] VITALS: Ht 167.6 cm; Wt 111.6 kg
[~2018-10-04 10:17] MED LIST changes: +ALBU2.5V8 INH; -GABA-586 PO; +GABA300C18 PO; -HYDR-2758 PO; +HYDR-2761 PO; +HYDR-3164 PO; -HYDR-971 PO; -OXYC-323 PO; -OXYC-327 PO; -OXYC-328 PO; -OXYC10TA45 PO; +OXYC10TA46 PO; +OXYC1TAB15 PO; +OXYC1TAB19 PO; +OXYC1TAB22 PO; -PROAIR HFA8.5 GM INH
[2018-10-04 10:33] VITALS: BP 140/69
[2018-10-04] MEDS ORDERED: PRED50TA PO (11:07)
--- NOTE | 2018-10-04 11:08 | PHYS DOC ---
Past Medical History Past Medical History: Bronchitis, DVT, Hypertension, Seizure Past Surgical History: Cholecystectomy, Hysterectomy, Knee Replacement, Tubal ligation Additional Past Surgical Histo: MULTIPLE KNEE SX Alcohol Use: Rarely Drug Use: None Adult General Chief Complaint Chief Complaint: SORE THROAT HPI HPI Patient is a 53 year old female who presents with cough, congestion, sore throat and subjective fever off and on x 4 days. She denies earaches, nausea or vomiting. She denies headache. She states that she does have a history of chronic bronchitis. She states that she is out of her Symbicort but has not called her PCP for refills. Review of Systems Review of Systems Constitutional: See history of present illness Eyes: Denies change in visual acuity, redness, or eye pain [] HENT: See history of present illness Respiratory: Denies cough or shortness of breath [] Cardiovascular: No additional information not addressed in HPI [] Neurologic: Denies headache, focal weakness or sensory changes [] Endocrine: Denies polyuria or polydipsia [] All other systems were reviewed and found to be within normal limits, except as documented in this note. Allergies Allergies Allergies Coded Allergies Type Severity Reaction Last Updated Verified vancomycin Adverse Reaction Intermediate rash, Doxycycline OK 03/21/17 Yes Physical Exam Physical Exam Constitutional: Well developed, well nourished, no acute distress, non-toxic appearance. [] HENT: Normocephalic, atraumatic, bilateral external ears normal, oropharynx slightly erythematous with no oral exudates, nose normal. [] Eyes: PERRLA, EOMI, conjunctiva normal, no discharge. [] Neck: Normal range of motion, no tenderness, supple, no stridor. [] Cardiovascular:Heart rate regular rhythm, no murmur [] Lungs & Thorax: Bilateral breath sounds clear to auscultation [] Neurologic: Alert and oriented X 3, normal motor function, normal sensory function, no focal deficits noted. [] Psychologic: Affect normal, judgement normal, mood normal. [] Current Patient Data Vital Signs Vital Signs Date Time Temp Pulse Resp B/P (MAP) Pulse Ox O2 Delivery O2 Flow Rate FiO2 10/04/18 10:33 98.4 72 18 140/69 (92) 98 Room Air 98.4 EKG EKG [] Radiology/Procedures Radiology/Procedures [] Course & Med Decision Making Course & Med Decision Making Pertinent Labs and Imaging studies reviewed. (See chart for details) [] Staff Physician Addendum: I was working in the ER during the course of this patient's visit. I was available for consultation as needed, but I was not directly involved in the care of this patient. Dragon Disclaimer Dragon Disclaimer This electronic medical record was generated, in whole or in part, using a voice recognition dictation system. Departure Departure Impression: Primary Impression: Bronchitis Additional Impression: URI (upper respiratory infection) Disposition: HOME, SELF-CARE Condition: STABLE Referrals: KEMI MARIANO MD (PCP) Patient Instructions: Bronchitis, Upper Respiratory Infection, Adult Additional Instructions: Take medications as directed. Follow-up with your primary care provider for refills of your medication. You may ask the pharmacy to contact them for refills. Return to the emergency department if worsening. Scripts Prednisone (PREDNISONE) 50 Mg Tablet 1 TAB PO DAILY for bronchitis, #5 TAB Prov: ARNOLD QUINTEROS APRN 10/04/18 Problem Qualifiers ARNOLD QUINTEROS APRN Oct 04, 2018 11:08 DIANNA PEREZ MD Oct 05, 2018 12:37
== END 2018-10-04 11:15 | disposition home or self-care (01) ==
LOC: ER 10:17
DX: J40 Bronchitis, not specified as acute or chronic (principal); J06.9 Acute upper respiratory infection, unspecified; I10 Essential (primary) hypertension; Z88.1 Allergy status to other antibiotic agents
CPT/HCPCS: 99283

== ENCOUNTER 2018-12-29 10:11 | Emergency (ER) | payer OTHER ==
[~2018-12-29] VITALS: Ht 167.6 cm; Wt 106.6 kg
[~2018-12-29 10:11] MED LIST changes: +PRED50TA PO
[2018-12-29 11:08] VITALS: BP 136/84
[2018-12-29 12:57] LABS: INFLUENZA A PATIENT NEGATIVE (NEGATIVE); INFLUENZA B PATIENT NEGATIVE (NEGATIVE)
[2018-12-29] MEDS ORDERED: METH4TAB2 PO (13:12)
[2018-12-29] MEDS ORDERED: BENZ100C PO (13:12)
--- NOTE | 2018-12-29 13:12 | PHYS DOC ---
Past Medical History Past Medical History: Bronchitis, DVT, Hypertension, Seizure Past Surgical History: Cholecystectomy, Hysterectomy, Knee Replacement, Tubal ligation Additional Past Surgical Histo: MULTIPLE KNEE SX Alcohol Use: Rarely Drug Use: None Adult General Chief Complaint Chief Complaint: COUGH HPI HPI Patient is a 53 year old female who presents to the emergency department with complaints of chest tightness that increases with inspiration, productive cough with yellow sputum, chills, and nasal congestion for the last four days. Patient states two days ago she began to have a fever. She reports a history of recurrent bronchitis. Currently, she rates her pain a 10 out of 10 on the pain scale, there are no alleviating factors. Review of Systems Review of Systems Constitutional: See HPI Eyes: Denies change in visual acuity, redness, or eye pain [] HENT: See HPI Respiratory: See HPI Cardiovascular: No additional information not addressed in HPI [] GI: Denies abdominal pain, nausea, vomiting, or diarrhea [] Musculoskeletal: Denies back pain or joint pain; reports generalize bodyaches [] Integument: Denies rash or skin lesions [] Neurologic: Denies headache, focal weakness or sensory changes [] Complete systems were reviewed and found to be within normal limits, except as documented in this note. Allergies Allergies Allergies Coded Allergies Type Severity Reaction Last Updated Verified vancomycin Adverse Reaction Intermediate rash, Doxycycline OK 03/21/17 Yes Physical Exam Physical Exam Constitutional: Well developed, well nourished, no acute distress, ill appearance. [] HENT: Normocephalic, atraumatic, bilateral external ears normal,mild erythema posterior pharynx, oropharynx moist, no oral exudates, nose normal. [] Eyes: conjunctiva normal, no discharge. [] Neck: Normal range of motion, no stridor. [] Cardiovascular:Heart rate regular rhythm, Lungs & Thorax: Bilateral breath sounds clear to auscultation, no retractions, speaking full sentences [] Skin: Warm, dry, no erythema, no rash. [] Extremities:No cyanosis, ROM intact, no edema, no deformities. Neurologic: Alert and oriented X 3, no focal deficits noted. [] Psychologic: Affect normal, judgement normal, mood normal. [] Current Patient Data Vital Signs Lab Values Laboratory Tests Test 12/29/18 11:39 Influenza Type A Antigen Negative (NEGATIVE) Influenza Type B Antigen Negative (NEGATIVE) EKG EKG [] Radiology/Procedures Radiology/Procedures influenza negative[] Course & Med Decision Making Course & Med Decision Making Pertinent Labs and Imaging studies reviewed. (See chart for details) [] Destiny Disclaimer Dragon Disclaimer This electronic medical record was generated, in whole or in part, using a voice recognition dictation system. Departure Departure Impression: Primary Impression: URI with cough and congestion Disposition: HOME, SELF-CARE Condition: STABLE Referrals: KEMI MARIANO MD (PCP) Patient Instructions: Upper Respiratory Infection, Adult, [id number] Additional Instructions: Fill prescription(s) and use as directed. Recommend use of a Cool mist humidifier in room at bedtime. Alternate Tylenol or ibuprofen as needed for pain/fever. Increase clear fluids. Avoid airway triggers such as smoke, f ragrance, dust, and pollen. May take [id number] cough suppressants as needed. Follow-up with your primary care doctor symptoms persist, return to the ER symptoms worsen. Scripts Benzonatate (TESSALON PERLE) 100 Mg Capsule 100 MG PO TID PRN for COUGH for 7 Days, #21 CAP 0 Refills Prov: HARJEET MERCAOD LEGAL WORD [employer]ESSOR 12/29/18 Methylprednisolone (MEDROL) 4 Mg Tab.ds.pk 1 PKG PO UD, #1 PKG 0 Refills Prov: HARJEET MERCADO LEGAL WORD PROCESSOR 12/29/18 HARJEET MERCADO LEGAL WORD PROCESSOR Dec 29, 2018 13:12
== END 2018-12-29 13:19 | disposition home or self-care (01) ==
LOC: ER 10:11
DX: J06.9 Acute upper respiratory infection, unspecified (principal); I10 Essential (primary) hypertension; Z86.718 Personal history of other venous thrombosis and embolism; Z88.1 Allergy status to other antibiotic agents
CPT/HCPCS: 87804; 99283

== ENCOUNTER → 2019-02-01 | Outpatient (CLI) | payer OTHER ==
[~2019-02-01] MED LIST changes: +BENZ100C PO; +METH4TAB2 PO
[2019-02-01 08:37] LABS: BASO % 0 % (0-3); EOS # 0.1 x10^3/uL (0.0-0.7); EOS % 1 % (0-3); HEMATOCRIT 41.7 % (36.0-47.0); HEMOGLOBIN 14.1 g/dL (12.0-15.5); LYMPH # 2.7 x10^3/uL (1.0-4.8); LYMPH % 35 % (24-48); MEAN CORPUSCULAR HEMOGLOBIN 31 pg (25-35); MEAN CORPUSCULAR HGB CONC 34 g/dL (31-37); MEAN CORPUSCULAR VOLUME 91 fL (79-100); MONO # 0.5 x10^3/uL (0.0-1.1); MONO % 7 % (0-9); NEUT # 4.5 x10^3uL (1.8-7.7); NEUT % 58 % (31-73); PLATELET COUNT 221 x10^3/uL (140-400); RED BLOOD COUNT 4.58 x10^6/uL (3.50-5.40); RED CELL DISTRIBUTION WIDTH 12.8 % (11.5-14.5); WHITE BLOOD COUNT 7.9 x10^3/uL (4.0-11.0)
[2019-02-01 08:55] LABS: ALBUMIN 3.6 g/dL (3.4-5.0); ALK PHOS 146 U/L (46-116); ALT (SGPT) 20 U/L (14-59); ANION GAP 9 (6-14); AST (SGOT) 10 U/L (15-37); BLOOD UREA NITROGEN 14 mg/dL (7-20); BUN/CREATININE RATIO 18 (6-20); CALCIUM 8.7 mg/dL (8.5-10.1); CARBON DIOXIDE 23 mmol/L (21-32); CHLORIDE 104 mmol/L (98-107); CHOLESTEROL 169 mg/dL (0-200); CREATININE 0.8 mg/dL (0.6-1.0); GFR 90.4; GLUCOSE 197 mg/dL (70-99); HDLC 53 mg/dL (40-60); POTASSIUM 3.8 mmol/L (3.5-5.1); SODIUM 136 mmol/L (136-145); TOTAL BILIRUBIN 0.3 mg/dL (0.2-1.0); TOTAL PROTEIN 7.2 g/dL (6.4-8.2); TRIGLYCERIDES 73 mg/dL (0-150); VLDLC 15 mg/dL (0-40)
[2019-02-01 08:56] LABS: LDLC 101 mg/dL (0-100); PHENY 10.9 mcg/mL (10.0-20.0)
[2019-02-01 09:03] LABS: CHOLESTEROL/HDL RATIO 3.2
[2019-02-01 16:13] LABS: CREAT RD UR 202.3 mg/dL (Not Estab.); MICROALB RD UR 12.2 ug/mL (Not Estab.)
[2019-02-01 22:08] LABS: HEMOGLOBIN A1C 7.4 % (4.8-5.6)
== END | disposition home or self-care (01) ==
LOC: LAB 07:38
PROVIDERS: ATTEND Internal Medicine
DX: E11.9 Type 2 diabetes mellitus without complications (principal); R56.9 Unspecified convulsions
CPT/HCPCS: 36415; 80053; 80061; 80185; 82043; 82570; 83036; 84443; 85025